=== PATIENT | female | born 1970 | race African-American/Black ===

== ENCOUNTER 2017-09-17 12:28 | Emergency (ER) | payer OTHER ==
[~2017-09-17] VITALS: Ht 172.7 cm; Wt 117.1 kg
[2017-09-17 12:33] VITALS: BP 156/104
--- NOTE | 2017-09-17 12:43 | NUR ---
PT AMBULATES TO BED 4, REPORT GIVEN TO MELISA BECERRA
--- NOTE | 2017-09-17 12:45 | NUR ---
PATIENT PRESENTS TO ED WITH COMPLAINTS OF RIGHT HIP PAIN. PATIENT STATES IT IS ONGOING AND SEVERE. DENIES N/V/D; SKIN IS PINK/WARM/DRY; AAOX4 WITH EVEN AND STEADY GAIT; LUNGS CLEAR BL; HR EVEN AND REGULAR; PT DENIES ANY FEVER, CP, SOB, OR COUGH AT THIS TIME; PATIENT STATES PAIN OF 10/10 AT THIS TIME; VSS; PATIENT POSITIONED FOR COMFORT; HOB ELEVATED; BEDRAILS UP X1; BED DOWN. ER MD MADE AWARE OF PT STATUS.
[2017-09-17] MEDS ORDERED: KETOROLAC 60 MG/2 ML VIAL IM ONE (12:55)
[2017-09-17] MEDS ORDERED: MORPHINE SULFATE 2 MG/ML SYR IM ONE (12:55)
--- NOTE | 2017-09-17 14:10 | NUR ---
PATIENT RESTING, REQUESTS WATER
[2017-09-17 14:55] VITALS: BP 122/88
--- NOTE | 2017-09-17 14:55 | NUR ---
Patient discharged with v/s stable. Written and verbal after care instructions given and explained. Patient alert, oriented and verbalized understanding of instructions. Ambulatory with steady gait. All questions addressed prior to discharge. ID band removed. Patient advised to follow up with PMD. Rx of TRAMADOL AND VISTARIL given. Patient educated on indication of medication including possible reaction and side effects. Opportunity to ask questions provided and answered.
== END 2017-09-17 14:55 | disposition home or self-care (01) ==
LOC: MED 12:28
DX: G89.29 Other chronic pain (principal); M54.5 Low back pain; I10 Essential (primary) hypertension; I25.10 Atherosclerotic heart disease of native coronary artery without angina pectoris; J44.9 Chronic obstructive pulmonary disease, unspecified; M19.90 Unspecified osteoarthritis, unspecified site; Z98.84 Bariatric surgery status
CPT/HCPCS: 72131; 96372; 99284; J1885; J2270

== ENCOUNTER 2018-01-24 21:17 | Emergency (ER) | payer OTHER ==
[~2018-01-24] VITALS: Ht 172.7 cm; Wt 122.5 kg
[2018-01-24 21:27] VITALS: BP 143/82
[2018-01-24] MEDS ORDERED: CYCL10TA33 PO (21:39)
[2018-01-24] MEDS ORDERED: SYN.05 PO (21:39)
[2018-01-24] MEDS ORDERED: ACET-62 PO (21:39)
[2018-01-24] MEDS ORDERED: OMEP20TC12 PO (21:39)
[2018-01-24] MEDS ORDERED: DICYCLOMINE HCL LIQUID 20 MG, ALUMINUM HYD/MAG/SIMETHICONE 30 ML, LIDOCAINE VISCOUS 2% ... PO ONE ×3 (21:45)
[2018-01-24 22:13] LABS: BASOPHILS # (AUTO) 0.1 K/uL (0.00-0.22); BASOPHILS % (AUTO) 0.9 % (0.0-2.0); EOSINOPHILS # (AUTO) 0.4 K/uL (0-0.4); EOSINOPHILS % (AUTO) 5.8 % (0.0-4.0); HEMATOCRIT 31.9 % (36-48); HEMOGLOBIN 10.4 g/dL (12.0-16.0); LYMPHOCYTES # (AUTO) 2.6 K/uL (2.5-16.5); LYMPHOCYTES % (AUTO) 37.7 % (20.5-51.1); MEAN CORPUSCULAR HEMOGLOBIN 30 pg (27-31); MEAN CORPUSCULAR HGB CONC 33 g/dL (33-37); MEAN CORPUSCULAR VOLUME 91.9 fL (80-94); MONOCYTES # (AUTO) 0.6 K/uL (0.8-1.0); MONOCYTES % (AUTO) 8.7 % (1.7-9.3); NEUTROPHILS # (AUTO) 3.2 K/uL (1.8-7.7); NEUTROPHILS % (AUTO) 46.9 % (42.2-75.2); PLATELET COUNT (AUTO) 280 K/uL (140-450); RED BLOOD CELL COUNT(AUTO) 3.47 MIL/uL (4.20-5.40); RED CELL DISTRIBUTION WIDTH 14.2 % (11.6-13.7); WHITE BLOOD COUNT (AUTO) 6.9 K/uL (4.8-10.8)
[2018-01-24 22:16] LABS: ANION GAP 8.2 (8-16); CARBON DIOXIDE 28.5 mmol/L (21-32); CREATININE 0.8 mg/dL (0.6-1.3); POTASSIUM 3.7 mmol/L (3.5-5.1)
[2018-01-24 22:22] LABS: ALBUMIN 3.4 g/dL (3.4-5.0); TOTAL BILIRUBIN 0.2 mg/dL (0.0-1.0)
[2018-01-24 22:51] LABS: APPEARANCE,URINE CLEAR (CLEAR); BILIRUBIN,URINE NEGATIVE (NEGATIVE); BLOOD, URINE TRACE (NEGATIVE); COLOR,URINE YELLOW (YELLOW); LEUKOCYTE ESTERASE ,URINE NEGATIVE (NEGATIVE); NITRITE, URINE NEGATIVE (NEGATIVE); PH,URINE 6.5 (5.0-9.0); UGLUCOSE NEGATIVE (NEGATIVE)
[2018-01-24 23:03] LABS: RBC,URINE 3-10 (FEW) /HPF (0-5)
[2018-01-24 23:10] VITALS: BP 139/79
== END 2018-01-24 23:11 | disposition home or self-care (01) ==
LOC: MED 21:17
DX: K21.9 Gastro-esophageal reflux disease without esophagitis (principal); D64.9 Anemia, unspecified; I10 Essential (primary) hypertension; J45.909 Unspecified asthma, uncomplicated; M06.9 Rheumatoid arthritis, unspecified; Z95.0 Presence of cardiac pacemaker; Z90.710 Acquired absence of both cervix and uterus; Z88.0 Allergy status to penicillin; Z91.040 Latex allergy status; Z79.1 Long term (current) use of non-steroidal anti-inflammatories (NSAID); Z79.899 Other long term (current) drug therapy
CPT/HCPCS: 36415; 80053; 81001; 81025; 83690; 85025; 87086; 99285

== ENCOUNTER 2018-02-09 15:01 | Emergency (ER) | payer OTHER ==
[~2018-02-09] VITALS: Ht 172.7 cm; Wt 118.4 kg
[2018-02-09 15:01] VITALS: BP 137/79
[~2018-02-09 15:01] MED LIST: ACET-62 PO; CYCL10TA33 PO; OMEP20TC12 PO; SYN.05 PO
[2018-02-09 17:18] VITALS: BP 137/79
== END 2018-02-09 17:18 | disposition home or self-care (01) ==
LOC: MED 15:01
DX: J30.9 Allergic rhinitis, unspecified (principal); J45.909 Unspecified asthma, uncomplicated; I10 Essential (primary) hypertension; Z88.0 Allergy status to penicillin; Z88.8 Allergy status to other drugs, medicaments and biological substances; Z91.040 Latex allergy status; Z79.899 Other long term (current) drug therapy; Z90.710 Acquired absence of both cervix and uterus
CPT/HCPCS: 36415; 71045; 87804; 99285; Q0092

== ENCOUNTER 2018-05-06 11:44 | Emergency (ER) | payer OTHER ==
[~2018-05-06] VITALS: Ht 167.6 cm; Wt 121.6 kg
[2018-05-06 12:03] VITALS: BP 120/91
--- NOTE | 2018-05-06 12:13 | NUR ---
AAO X 4 47 YO FEMALE AMBULATE TO BED 7 BIB SELF FOR DIARRHEA X 3 DAYS WITH BODY ACHE AND DIZZINESS. SHE HAS BEEN TAKING OTC ANTIDIARRHEAL AND COUGH MEDICINE WITH NO RELIEF. PLACE ON A GOWN, BED RAILS UP X2, ON MONITOR HX OF HIV.
[2018-05-06] MEDS ORDERED: PROMETHAZINE 25 MG/ML VIAL IM ONE (12:30)
[2018-05-06] MEDS ORDERED: DEXAMETHASONE 10 MG/ML VIAL IM ONE (12:30)
[2018-05-06] MEDS ORDERED: DIPHENOXYLATE /ATROPINE 2.5 MG TAB PO ONE (12:30)
--- NOTE | 2018-05-06 13:43 | NUR ---
Patient discharged with v/s stable. Written and verbal after care instructions given and explained. Patient alert, oriented and verbalized understanding of instructions. Ambulatory with steady gait. All questions addressed prior to discharge. ID band removed. Patient advised to follow up with PMD. Rx of Lomotil, Phenergan given. Patient educated on indication of medication including possible reaction and side effects. Opportunity to ask questions provided and answered.
[2018-05-06 13:44] VITALS: BP 117/66
== END 2018-05-06 13:43 | disposition home or self-care (01) ==
LOC: MED 11:44
DX: K52.9 Noninfective gastroenteritis and colitis, unspecified (principal); J45.909 Unspecified asthma, uncomplicated; I10 Essential (primary) hypertension; Z79.899 Other long term (current) drug therapy; Z88.0 Allergy status to penicillin; Z88.8 Allergy status to other drugs, medicaments and biological substances; Z91.040 Latex allergy status
CPT/HCPCS: 96372; 99283; J1100; J2550

== ENCOUNTER 2018-07-16 20:45 | Emergency (ER) | payer OTHER ==
[~2018-07-16] VITALS: Ht 170.2 cm; Wt 123.4 kg
[2018-07-16 20:52] VITALS: BP 150/90
--- NOTE | 2018-07-16 20:55 | NUR ---
TO LOBBY A/W BED, AMBULATORY
--- NOTE | 2018-07-16 21:07 | NUR ---
PT AMBULATED TO BED 08.
[2018-07-16] MEDS ORDERED: NACL 0.9% 1,000 ML IV ONE (21:25)
[2018-07-16 21:48] LABS: BASOPHILS % (AUTO) 0.6 % (0.0-2.0); EOSINOPHILS # (AUTO) 0.5 K/uL (0-0.4); EOSINOPHILS % (AUTO) 6.5 % (0.0-4.0); HEMATOCRIT 35.9 % (36-48); LYMPHOCYTES # (AUTO) 2.9 K/uL (2.5-16.5); MEAN CORPUSCULAR HEMOGLOBIN 30 pg (27-31); MEAN CORPUSCULAR HGB CONC 33 g/dL (33-37); MEAN CORPUSCULAR VOLUME 89.8 fL (80-94); MONOCYTES # (AUTO) 0.7 K/uL (0.8-1.0); MONOCYTES % (AUTO) 9.8 % (1.7-9.3); NEUTROPHILS # (AUTO) 2.9 K/uL (1.8-7.7); NEUTROPHILS % (AUTO) 42.1 % (42.2-75.2); PLATELET COUNT (AUTO) 273 K/uL (140-450); RED CELL DISTRIBUTION WIDTH 14.7 % (11.6-13.7)
[2018-07-16 21:50] LABS: APPEARANCE,URINE CLEAR (CLEAR); BILIRUBIN,URINE NEGATIVE (NEGATIVE); BLOOD, URINE NEGATIVE (NEGATIVE); COLOR,URINE YELLOW (YELLOW); NITRITE, URINE NEGATIVE (NEGATIVE); UGLUCOSE NEGATIVE (NEGATIVE)
[2018-07-16 21:52] LABS: LEUKOCYTE ESTERASE ,URINE NEGATIVE (NEGATIVE)
--- NOTE | 2018-07-16 21:52 | NUR ---
PT STATES SHE IS HIV POSITIVE.
[2018-07-16 21:56] LABS: BARBITURATE, URINE NEG. ng/ml (NEG <=200); BENZODIAZEPINE, URINE NEG. ng/mL (NEG <=200); CANNABINOID, URINE NEG. ng/mL (NEG <=50); COCAINE, URINE NEG. ng/mL (NEG <=300); OPIATE, URINE NEG. ng/mL (NEG <=2000); PHENCYCLIDINE SCREEN,URINE NEG. ng/mL (NEG <=25)
[2018-07-16 22:03] LABS: CARBON DIOXIDE 31.5 mmol/L (21-32); CREATININE 0.8 mg/dL (0.6-1.3); POTASSIUM 3.5 mmol/L (3.5-5.1)
[2018-07-16 22:09] LABS: ALBUMIN 3.7 g/dL (3.4-5.0); TOTAL BILIRUBIN 0.3 mg/dL (0.0-1.0)
[2018-07-16] MEDS ORDERED: MECLIZINE 25 MG TAB PO ONE (22:20)
[2018-07-16] MEDS ORDERED: KETOROLAC 30 MG/ML VIAL IVP ONE (22:20)
--- NOTE | 2018-07-16 22:30 | NUR ---
PT TO CT AT THIS TIME
[2018-07-16 23:39] VITALS: BP 140/88
== END 2018-07-16 23:39 | disposition home or self-care (01) ==
LOC: MED 20:45
DX: R42 Dizziness and giddiness (principal); R53.1 Weakness; R51 Headache; K21.9 Gastro-esophageal reflux disease without esophagitis; E07.9 Disorder of thyroid, unspecified; Z85.43 Personal history of malignant neoplasm of ovary; Z88.0 Allergy status to penicillin; Z88.8 Allergy status to other drugs, medicaments and biological substances; Z91.040 Latex allergy status; Z79.891 Long term (current) use of opiate analgesic; Z79.899 Other long term (current) drug therapy; J45.909 Unspecified asthma, uncomplicated; Z95.0 Presence of cardiac pacemaker; Z90.89 Acquired absence of other organs; Z90.710 Acquired absence of both cervix and uterus
CPT/HCPCS: 36415; 70450; 80053; 80305; 81003; 84443; 85025; 93005; 96361; 96374; 99284; J1885; J7030; J8597

== ENCOUNTER 2019-02-24 16:08 | Emergency (ER) | payer OTHER ==
[~2019-02-24] VITALS: Ht 170.2 cm; Wt 132.4 kg
[2019-02-24 16:17] VITALS: BP 163/92
--- NOTE | 2019-02-24 16:22 | NUR ---
VIVI WU. SENT TO LOB, AWAITING BED IN ED. VSS.
--- NOTE | 2019-02-24 18:10 | NUR ---
PATIENT AMBULATED TO BED 06
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
--- NOTE | 2019-02-24 19:56 | NUR ---
Dr. Graham examining patient.
[2019-02-24] MEDS ORDERED: KETOROLAC 60 MG/2 ML VIAL IM ONE (20:15)
--- NOTE | 2019-02-24 20:25 | NUR ---
48 Y/O FEMALE BILATERAL LEG PAIN X 1 WEEK ONSET AFTER NIECE LEANING ON LEGS WHILE PT WAS BRAIDING HAIR. SKIN IS NORMAL, DRY, AND ELASTIC. ERMD MADE AWARE OF STATUS. 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
--- NOTE | 2019-02-24 20:27 | NUR ---
PTS LEFT KNEE WAS J LUIS WRAPPED. PTS PMSC WNL AND PT DENIED THE CRUTCHES.
[2019-02-24 20:54] VITALS: BP 120/76
== END 2019-02-24 20:55 | disposition home or self-care (01) ==
LOC: MED 16:08
DX: S86.812A Strain of other muscle(s) and tendon(s) at lower leg level, left leg, initial encounter (principal); J45.909 Unspecified asthma, uncomplicated; K21.9 Gastro-esophageal reflux disease without esophagitis; E07.9 Disorder of thyroid, unspecified; Z85.43 Personal history of malignant neoplasm of ovary; Z90.710 Acquired absence of both cervix and uterus; Z95.0 Presence of cardiac pacemaker; Z79.899 Other long term (current) drug therapy; Z88.0 Allergy status to penicillin; Z88.8 Allergy status to other drugs, medicaments and biological substances; Z91.040 Latex allergy status; X58.XXXA Exposure to other specified factors, initial encounter; Y93.89 Activity, other specified; Y92.89 Other specified places as the place of occurrence of the external cause; Y99.8 Other external cause status
CPT/HCPCS: 73562; 73590; 96372; 99283; J1885

== ENCOUNTER 2019-04-18 22:47 | Emergency (ER) | payer OTHER ==
[~2019-04-18] VITALS: Ht 170.2 cm; Wt 135.6 kg
[2019-04-18 23:00] VITALS: BP 148/90
--- NOTE | 2019-04-18 23:03 | NUR ---
TO LOBBY A/W BED AMBULATORY
--- NOTE | 2019-04-19 01:52 | NUR ---
PATIENT SITTING UP IN BED, BED LOW AND LOCKED. HOOKED UP TO MONITOR, VSS. ASSESSMENT COMPLETED: BIB SELF REPORTING UMBILICAL ABD PAIN, EPIGASTRIC PAIN AND TENDERNESS AND RLQ PAIN. ABD SOFT, BOWEL SOUNDS ACTIVE. PATIENT REPORTS THAT SHE HAS HAD A HERNIA FOR "YEARS", NOT SEEN UPON ASSESSMENT. PATIENT REPORTS NO RESP SYMPTOMS, LUNGS CLEAR. PATIENT REPORTS NO FEVER, OR NVD. PMH IN CHART.
[2019-04-19 02:27] LABS: APPEARANCE,URINE SL CLOUDY (CLEAR); BILIRUBIN,URINE NEGATIVE (NEGATIVE); BLOOD, URINE NEGATIVE (NEGATIVE); COLOR,URINE YELLOW (YELLOW); LEUKOCYTE ESTERASE ,URINE 1+ (NEGATIVE); NITRITE, URINE NEGATIVE (NEGATIVE); UGLUCOSE NEGATIVE (NEGATIVE)
[2019-04-19] MEDS ORDERED: ONDANSETRON 4 MG/2 ML VIAL IVP ONE (02:40)
[2019-04-19] MEDS ORDERED: fentaNYL 0.05 MG/ML VIAL IVP ONE (02:40)
[2019-04-19 03:05] LABS: BASOPHILS % (AUTO) 0.5 % (0.0-2.0); EOSINOPHILS # (AUTO) 0.3 K/uL (0-0.4); EOSINOPHILS % (AUTO) 5.2 % (0.0-4.0); HEMATOCRIT 34.8 % (36-48); HEMOGLOBIN 11.3 g/dL (12.0-16.0); MEAN CORPUSCULAR HEMOGLOBIN 29 pg (27-31); MEAN CORPUSCULAR HGB CONC 33 g/dL (33-37); MEAN CORPUSCULAR VOLUME 89.8 fL (80-94); MONOCYTES # (AUTO) 0.6 K/uL (0.8-1.0); MONOCYTES % (AUTO) 9.6 % (1.7-9.3); NEUTROPHILS # (AUTO) 3.2 K/uL (1.8-7.7); NEUTROPHILS % (AUTO) 51.7 % (42.2-75.2); PLATELET COUNT (AUTO) 273 K/uL (140-450); RED BLOOD CELL COUNT(AUTO) 3.87 MIL/uL (4.20-5.40); RED CELL DISTRIBUTION WIDTH 14.8 % (11.6-13.7); WHITE BLOOD COUNT (AUTO) 6.2 K/uL (4.8-10.8)
[2019-04-19 03:16] LABS: RBC,URINE 0-5 /HPF (0-5); WBC,URINE TOO MANY TO COUNT /HPF (0-5)
[2019-04-19 03:21] LABS: ALBUMIN 3.6 g/dL (3.4-5.0); ANION GAP 11.2 (8-16); CARBON DIOXIDE 28.9 mmol/L (21-32); CREATININE 0.8 mg/dL (0.6-1.3); POTASSIUM 4.1 mmol/L (3.5-5.1); TOTAL BILIRUBIN 0.2 mg/dL (0.0-1.0)
--- NOTE | 2019-04-19 03:34 | NUR ---
PATIENT EDUCATED ON CONTRAST AND SIGNED CONSENT FOR CT WITH CONTRAST, STATED UNDERSTANDING.
[2019-04-19] MEDS ORDERED: ceFAZolin 1,000 MG VIAL ONE (04:10)
[2019-04-19 06:13] VITALS: BP 126/78
--- NOTE | 2019-04-19 06:13 | NUR ---
Patient discharged with v/s stable. Written and verbal after care instructions given and explained. Patient alert, oriented and verbalized understanding of instructions. Ambulatory with steady gait. All questions addressed prior to discharge. ID band removed. Patient advised to follow up with PMD. Rx of ZOFRAN, NORCO, AND BACTRIM given. Patient educated on indication of medication including possible reaction and side effects. Opportunity to ask questions provided and answered.
== END 2019-04-19 06:13 | disposition home or self-care (01) ==
LOC: MED 22:47
DX: N39.0 Urinary tract infection, site not specified (principal); J45.909 Unspecified asthma, uncomplicated; K21.9 Gastro-esophageal reflux disease without esophagitis; E07.9 Disorder of thyroid, unspecified; Z98.84 Bariatric surgery status; Z90.710 Acquired absence of both cervix and uterus; Z95.0 Presence of cardiac pacemaker; Z79.899 Other long term (current) drug therapy; Z88.0 Allergy status to penicillin; Z88.8 Allergy status to other drugs, medicaments and biological substances; Z91.040 Latex allergy status; Z85.43 Personal history of malignant neoplasm of ovary
CPT/HCPCS: 36415; 74177; 80053; 81001; 82150; 83690; 84703; 85025; 87086; 96365; 96375; 99284; J0690; J2405; J3010; J7060; Q9967

== ENCOUNTER 2019-08-29 14:48 | Inpatient (IN) | payer OTHER, SELFPAY ==
[~2019-08-29] VITALS: Ht 170.2 cm; Wt 97.5 kg
[2019-08-29] MEDS: HYDROCORTISONE 2.5% OINT 30 GM TUBE TP SCH (01:00)
--- NOTE | 2019-08-29 14:49 | NUR ---
PT BIBA BLSTO ER BED 07
[2019-08-29 14:54] VITALS: BP 147/92
[2019-08-29] MEDS ORDERED: HYDROcodone/APAP 5/325 MG 1 TAB TAB PO ONE (15:10)
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
--- NOTE | 2019-08-29 15:16 | NUR ---
Zulema higgins in [facility] - 08/29/19 at 1517 by ELIEZER X-RAY AT BEDSIDE
--- NOTE | 2019-08-29 15:17 | NUR ---
X-RAY AY BEDSIDE
--- NOTE | 2019-08-29 15:55 | NUR ---
PT AWAKE AND RESTING IN BED. R/R EVEN AND UNLABORED.
[2019-08-29] MEDS ORDERED: ONDANSETRON 4 MG/2 ML VIAL IVP ONE (16:05)
[2019-08-29] MEDS ORDERED: MORPHINE SULFATE 4 MG/ML SYR IVP ONE (16:05)
[2019-08-29 16:28] LABS: BASOPHILS # (AUTO) 0.1 K/uL (0.00-0.22); BASOPHILS % (AUTO) 0.8 % (0.0-2.0); EOSINOPHILS # (AUTO) 0.3 K/uL (0-0.4); EOSINOPHILS % (AUTO) 4.6 % (0.0-4.0); HEMATOCRIT 36.1 % (36-48); HEMOGLOBIN 11.7 g/dL (12.0-16.0); LYMPHOCYTES # (AUTO) 1.5 K/uL (2.5-16.5); LYMPHOCYTES % (AUTO) 22.5 % (20.5-51.1); MEAN CORPUSCULAR HEMOGLOBIN 28 pg (27-31); MEAN CORPUSCULAR HGB CONC 32 g/dL (33-37); MEAN CORPUSCULAR VOLUME 87.8 fL (80-94); MONOCYTES # (AUTO) 0.5 K/uL (0.8-1.0); MONOCYTES % (AUTO) 8.2 % (1.7-9.3); NEUTROPHILS # (AUTO) 4.2 K/uL (1.8-7.7); NEUTROPHILS % (AUTO) 63.9 % (42.2-75.2); PLATELET COUNT (AUTO) 324 K/uL (140-450); RED BLOOD CELL COUNT(AUTO) 4.11 MIL/uL (4.20-5.40); RED CELL DISTRIBUTION WIDTH 15.5 % (11.6-13.7); WHITE BLOOD COUNT (AUTO) 6.6 K/uL (4.8-10.8)
--- NOTE | 2019-08-29 16:34 | NUR ---
Patient taken to CT via gurney.
[2019-08-29 16:42] LABS: PROTHROMBIN TIME 10.6 secs (10.8-13.4)
[2019-08-29 16:43] LABS: ALBUMIN 3.7 g/dL (3.4-5.0); ANION GAP 13.3 (8-16); CARBON DIOXIDE 27.7 mmol/L (21-32); CREATININE 0.9 mg/dL (0.6-1.3); TOTAL BILIRUBIN 0.3 mg/dL (0.0-1.0)
--- NOTE | 2019-08-29 16:47 | NUR ---
PT RETURNED FROM CT ON [facility]
[2019-08-29] MEDS ORDERED: ZOLPIDEM 5 MG TAB PO PRN (17:40)
[2019-08-29] MEDS ORDERED: DOCUSATE SODIUM 100 MG GELCAP PO PRN (17:40)
[2019-08-29] MEDS ORDERED: DEXT 5% /NACL 0.9% 1,000 ML IV SCH (17:40)
[2019-08-29] MEDS ORDERED: ACETAMINOPHEN 325 MG TAB PO PRN (17:40)
[2019-08-29] MEDS ORDERED: [UNRECOGNIZED DRUG - CODE] OP (18:08)
[2019-08-29] MEDS ORDERED: BACL10TA4 PO (18:08)
[2019-08-29] MEDS ORDERED: CALC0.5S6 PO (18:08)
[2019-08-29] MEDS ORDERED: CHOL200074 PO (18:08)
[2019-08-29] MEDS ORDERED: FLUO0.052 TP (18:08)
[2019-08-29] MEDS ORDERED: DULO30EC PO (18:08)
[2019-08-29] MEDS ORDERED: ALBU0.0912 INH (18:08)
[2019-08-29] MEDS ORDERED: MULT-1328 PO (18:08)
[2019-08-29] MEDS ORDERED: OSC500 PO ×2 (18:08)
[2019-08-29] MEDS ORDERED: FLUT1DSK IH (18:08)
[2019-08-29] MEDS ORDERED: MAGN400T7 PO (18:08)
[2019-08-29] MEDS ORDERED: ESOM20EC PO (18:08)
[2019-08-29] MEDS ORDERED: LIDO5TDM45 TP (18:08)
[2019-08-29] MEDS ORDERED: LIRA6SOL SUBQ (18:08)
[2019-08-29] MEDS ORDERED: MONT10TA35 PO (18:08)
[2019-08-29] MEDS ORDERED: LEVO5TAB12 PO (18:08)
[2019-08-29] MEDS ORDERED: SYN.05 PO (18:08)
[2019-08-29] MEDS ORDERED: HYD2.5O TP (18:08)
[2019-08-29] MEDS ORDERED: [UNRECOGNIZED DRUG - CODE] PO (18:08)
[2019-08-29] MEDS ORDERED: KETO120S5 TP (18:08)
[2019-08-29] MEDS ORDERED: RIZA10TA PO (18:08)
[2019-08-29] MEDS ORDERED: ABAL1.56 SUBQ (18:08)
[2019-08-29] MEDS ORDERED: LEFL20TA18 PO (18:08)
[2019-08-29 18:20] LABS: CHOL/HDL RATIO 3.1 (1-4.5); FREE T4 (FREE THYROXINE) 0.8 ng/dL (0.76-1.46); MAGNESIUM 2.2 mg/dL (1.8-2.4); PHOSPHORUS 4.3 mg/dL (2.5-4.9)
--- NOTE | 2019-08-29 18:20 | NUR ---
Patient will be admitted to care of DR NOLAN. Admited to [facility]. Will go to room 124A. Belongings list completed. Report to MELISA BERGERON.
[2019-08-29 18:25] VITALS: BP 142/72
--- NOTE | 2019-08-29 18:25 | NUR ---
PATIENT ARRIVED VIA GURNEY FROM ED. REPORT GIVEN BY MELISA SINGH. PATIENT IS ALERT AND ORIENTED X4. INTRODUCED SELF. PT DX RT METARSAL FX AND LT TIBIAL PLATEAU. VS STABLE. MRSA SWAB DONE. DR. POMPA AT BEDSIDE. WILL ENDORSE TO NIGHT NURSE FOR CONTINUITY OF CARE. Addendum: 08/29/19 at 1830 by Macy Dent RN ADDITIONAL NOTES: PATIENT WITH IV TO LEFT AC 20G INTACT AND PATENT. CALL LIGHT WITHIN REACH.
[2019-08-29 18:42] LABS: THYROID STIMULATING HORMONE 2.2 uIU/mL (0.34-3.74)
[2019-08-29] MEDS ORDERED: RIZATRIPTAN BENZOATE 10 MG PO SCH (18:45)
--- NOTE | 2019-08-29 19:30 | NUR ---
RECEIVED BEDSIDE REPORT FROM AM SHIFT RN FOR PT'S CONTINUITY OF CARE. PT IS AAOX4, ON ROOM AIR, HAS LEFT AC 20G SALINE LOCK, STATES OF TOLERABLE RIGHT FOOT AND LEFT KNEE PAIN. EXPLAINED TO PT THE DRAFTING LAYOUT WORKER ROUTINE, PT VERBALIZED UNDERSTANDING. PT PROVIDED WITH BEDSIDE COMMODE. PT'S NEEDS MET AT THIS TIME. SAFETY MEASURES IN PLACE AND CALL LIGHT IS WITHIN REACH. WILL MONITOR PT THROUGHOUT SHIFT.
[2019-08-29] MEDS ORDERED: ONDANSETRON 4 MG/2 ML VIAL IM/IVP PRN (20:00)
[2019-08-29] MEDS: oxyCODONE/APAP 5/325 MG 1 TAB TAB PO PRN (20:33)
--- NOTE | 2019-08-29 20:50 | NUR ---
PT C/O RIGHT FOOT AND LEFT KNEE PAIN 09/03. ANIMAL CARETAKER SUPERVISOR ADMINISTERED PRN PO PAIN MEDICATION ORDERED. PT TOLERATED IT WELL. WILL CONTINUE TO MONITOR PT.
[2019-08-29] MEDS ORDERED: MORPHINE SULFATE 2 MG/ML SYR IVP PRN (22:10)
[2019-08-29] MEDS: BACLOFEN 10 MG TAB PO SCH (22:50)
[2019-08-29] MEDS: CALCIUM CARBONATE 500 MG TAB PO SCH (22:51)
[2019-08-29] MEDS: MULTIVITAMIN 1 TAB PO SCH (22:51)
[2019-08-29] MEDS: MONTELUKAST SODIUM 10 MG TAB PO SCH (22:51)
--- NOTE | 2019-08-29 22:58 | NUR ---
ADMINISTERED SCHEDULED MEDICATIONS ORDERED. PT TOLERATED THEM WELL. PT TEACHING GIVEN, PT VERBALIZED UNDERSTANDING. PT STATED ABD PAIN RELIEVED AFTER BOWEL MOVEMENT. PT'S NEEDS MET AT THIS TIME. CALL LIGHT IS WITHIN REACH. WILL CONTINUE TO MONITOR PT.
[2019-08-30] VITALS: BP 115/61
--- NOTE | 2019-08-30 | NUR ---
PT ASLEEP WITH NO SIGNS OF DISTRESS OR DISCOMFORT. WILL CONTINUE TO MONITOR PT.
--- NOTE | 2019-08-30 00:30 | NUR ---
CALLED PHARMACY TO REMIND AGAIN TO VERIFY HYDROCORTISONE TOPICAL OINTMENT. PHARMACY VERBALIZED WILL VERIFY SHORTLY.
--- NOTE | 2019-08-30 02:20 | NUR ---
MADE ROUNDS. PT IS ASLEEP WITH NO SIGNS OF DISTRESS OR DISCOMFORT. WILL CONTINUE TO MONITOR PT.
--- NOTE | 2019-08-30 04:33 | NUR ---
PT C/O RIGHT FOOT PAIN 12/04. ADMINISTERED PRN IVP PAIN MEDICATION ORDERED. PT TEACHING GIVEN, PT VERBALIZED UNDERSTANDING. WILL CONTINUE TO MONITOR PT.
[2019-08-30] MEDS: LEVOTHYROXINE 0.05 MG TAB PO SCH (05:41)
--- NOTE | 2019-08-30 05:41 | NUR ---
ADMINISTERED SCHEDULED MEDICATION ORDERED. PT TOLERATED IT WELL. PT TEACHING GIVEN, PT VERBALIZED UNDERSTANDING AND IS FAMILIAR WITH THE MEDICATION. PT'S TV NOT WORKING, WORK ORDER SUBMITTED BY NICKER AND BREAKER. PT MADE COMFORTABLE, C/O TOLERABLE PAIN OF 5/10. WILL CONTINUE TO MONITOR PT.
[2019-08-30 06:08] LABS: BASOPHILS # (AUTO) 0.1 K/uL (0.00-0.22); BASOPHILS % (AUTO) 0.8 % (0.0-2.0); EOSINOPHILS # (AUTO) 0.3 K/uL (0-0.4); EOSINOPHILS % (AUTO) 3.6 % (0.0-4.0); HEMATOCRIT 33.3 % (36-48); HEMOGLOBIN 10.8 g/dL (12.0-16.0); LYMPHOCYTES # (AUTO) 1.7 K/uL (2.5-16.5); LYMPHOCYTES % (AUTO) 22.8 % (20.5-51.1); MEAN CORPUSCULAR HEMOGLOBIN 29 pg (27-31); MEAN CORPUSCULAR HGB CONC 32 g/dL (33-37); MEAN CORPUSCULAR VOLUME 88.3 fL (80-94); MONOCYTES # (AUTO) 0.6 K/uL (0.8-1.0); NEUTROPHILS # (AUTO) 4.8 K/uL (1.8-7.7); NEUTROPHILS % (AUTO) 64.8 % (42.2-75.2); PLATELET COUNT (AUTO) 299 K/uL (140-450); RED BLOOD CELL COUNT(AUTO) 3.77 MIL/uL (4.20-5.40); RED CELL DISTRIBUTION WIDTH 15.9 % (11.6-13.7); WHITE BLOOD COUNT (AUTO) 7.4 K/uL (4.8-10.8)
[2019-08-30 06:17] LABS: T4 (THYROXINE) 6.6 ug/dL (4.5-12.0)
[2019-08-30] MEDS: oxyCODONE/APAP 5/325 MG 1 TAB TAB PO PRN ×2 (06:51→12:14)
--- NOTE | 2019-08-30 06:51 | NUR ---
PT C/O RIGHT FOOT AND LEFT KNEE PAIN, AGGRAVATED WHEN PUTTING WEIGHT ON TO BSC. ADMINISTERED PRN PO PAIN MEDICATION ORDERED. PT TOLERATED IT WELL. PT TEACHING GIVEN AND ENCOURAGE TO USE NON-PHARMACOLOGIC TECHNIQUES FOR PAIN RELIEF. PT VERBALIZED UNDERSTANDING. WILL ENDORSE PT TO AM SHIFT RN FOR PT'S CONTINUITY OF CARE.
[2019-08-30 07:04] LABS: ANION GAP 10.6 (8-16); CARBON DIOXIDE 29.7 mmol/L (21-32); CREATININE 0.9 mg/dL (0.6-1.3); POTASSIUM 4.3 mmol/L (3.5-5.1)
[2019-08-30 07:07] LABS: PHOSPHORUS 4.6 mg/dL (2.5-4.9)
--- NOTE | 2019-08-30 07:31 | NUR ---
SHIFT REPORT RECEIVED FROM CERTIFIED PHLEBOTOMIST NURSE. PT IS SLEEPING IN BED AT THIS TIME. SAFETY MEASURES IN PLACE. WILL CONTINUE TO MONITOR. CALL LIGHT IN REACH.
[2019-08-30 07:37] LABS: MAGNESIUM 2.2 mg/dL (1.8-2.4)
[2019-08-30 08:00] VITALS: BP 127/71
--- NOTE | 2019-08-30 08:00 | NUR ---
PT IS IN BED AT THIS TIME. NO COMPLAINS OF PAIN REPORTED AT THIS TIME. VITAL SIGNS ARE WITHIN NORMAL LEVELS. MORNING MEDICATIONS GIVEN TO PATIENT. PT IS A0X4. IV LINE INTACT AND PATIENT. SAFETY MEASURES IN PLACE. CALL LIGHT IN REACH. WILL CONTINUE TO MONITOR.
[2019-08-30] MEDS: BACLOFEN 10 MG TAB PO SCH ×2 (08:37→21:40)
[2019-08-30] MEDS: CALCIUM CARBONATE 500 MG TAB PO SCH ×2 (08:37→21:41)
[2019-08-30] MEDS: CHOLECALCIFEROL 1,000 IU TAB PO SCH (08:37)
[2019-08-30] MEDS: MULTIVITAMIN 1 TAB PO SCH ×2 (08:37→21:41)
[2019-08-30 08:43] LABS: PROTHROMBIN TIME 10.5 secs (10.8-13.4)
--- NOTE | 2019-08-30 08:57 | NUR ---
PATIENT HAS BEEN SCREENED AND CATEGORIZED LOW NUTRITION RISK. PATIENT WILL BE SEEN WITHIN 7 DAYS OF ADMISSION. 09/05/[address]
[2019-08-30] MEDS ORDERED: VITAMIN A ACETATE PO SCH (09:00)
[2019-08-30] MEDS: PANTOPRAZOLE 40 MG TABEC PO SCH (09:40)
[2019-08-30] MEDS: HYDROCORTISONE 2.5% OINT 30 GM TUBE TP SCH ×2 (09:41→21:41)
--- NOTE | 2019-08-30 09:48 | NUR ---
ELECTRONICS ENGINEERING TECHNOLOGIST NOTE: Basic Screen: Yes High Risk DC Screen [place]: VALENTIN SEE [place] Relationship: Pre-Admission Living Arrangements: Lives with Other Prior ADL Independent Current Home Health Name/Tel: N/A Current DME/02 Name/Tel: N/A Current Hospice Name/Tel: N/A Current Dialysis Name/Tel: N/A Healthcare Decision Maker: Patient Advance Directive No Physician Orders for Life Sustaining Treatment Form No Patient/Family Have Educational Needs No Discipline: Case Mgt/Social Svcs Tentative Discharge Plan/Destination: No Needs Identified Will require assistance post discharge: No Referred to Furniture Assembler: No Tentative Discharge Plan Summary: PATIENT IS A 76-YEAR-OLD FEMALE ADMITTED FOR [place]. PATIENT HAS PMHX OF HYPOTHYROIDISM, HTN, AND HLD. PATIENT WAS ADMITTED FROM HOME WHERE SHE LIVES WITH FAMILY. SW CONTACTED [facility] [phone] TO VERIFY DEMOGRAPHICS. PER SHANTE, PATIENT IS INDEPENDENT WITH ALL ADLS AND IS ALERT/ORIENTED AT BASELINE. SHANTE STATED REQUIRES NO ASSISTANCE WITH ADLS AND THAT ALL NEEDS ARE BEING MET. SHANTE REPORTED NO HISTORY OF SUBSTANCE ABUSE OR MENTAL HEALTH. TENTATIVE DISCHARGE PLAN IS FOR PATIENT TO RETURN HOME. NO FURTHER NEEDS IDENTIFIED. Signature: GIORGI MA Date: Aug 30, 2019 Time: 09:27
--- NOTE | 2019-08-30 10:58 | NUR ---
DISCHARGE PLANNING: RECEIVED AN ORDER FOR RANGE OF MOTION BRACE FOR LEFT KNEE AND HARD SOLE SHOE FOR RIGHT FOOT. CONTACTED LILIA OF [facility], HE STATED THAT MEDICARE SHOULD COVER IT. CONTACTED MARCIA OF [facility] AT [phone], HE CONFIRMED THAT THEY CARRY IT AND TO GO AHEAD AND FAX OVER ORDER TO [phone]. ORDER AND ORTHO NOTES FAXED TO THE PROVIDED NUMBER. WILL FOLLOW UP. Addendum: 08/30/19 at 1334 by Acacia Thomas CM CONTACTED MARCIA BACK TO FOLLOW UP WITH THE REQUEST. HE STATED ALL HE NEEDED RIGHT NOW IS THE SHOE SIZE OF THE PATIENT. PRIMARY RN MADE AWARE AND WILL CALL ME BACK. Addendum: 08/30/19 at 1451 by Acacia Thomas CM PER RN PATIENT'S SHOE SIZE IS 11. CLEO CRAWFORD Sitemasher OF THE PATIENT'S SHOE SIZE. HE STATED THAT THEY CAN DELIVER THE KNEE BRACE AND THE BEDSIDE COMMODE TODAY HOWEVER THEY HAVE TO ORDER THE HARD SOLE SHOE SINCE THEY DO NOT HAVE THE PATIENT'S SHOE SIZE AT THIS TIME. BUT IT CAN BE DELIVERED TO THE PATIENT'S HOME ADDRESS ON MONDAY OR MONDAY. I REQUESTED THAT THE KNEE BRACE CAN BE DELIVERED HERE TODAY AND THE BEDSIDE COMMODE AND SHOE AT THE HOME ADDRESS AND IS IN AGREEMENT. DR. MARCELINO AND CHARGE NURSE MADE AWARE. Addendum: 08/31/19 at 1141 by Shea Vicente CM DC PLANNING: PT HAS A DC ORDER HOME WITH HOME HEALTH . FAXED TO [facility]. COVID TEST IS PENDING ,KNEE BRACE WITH THE PATIENT AWAITING FOR THE PT TO INSTRUCT PATIENT HOW TO PLACE THE KNEE BRACE. CM TO FOLLOW .
--- NOTE | 2019-08-30 11:00 | NUR ---
PT IS SITTING IN BED AT THIS [place] WATCHING TELEVISION AND TALKING TO FAMILY MEMBERS OVER PHONE. NO COMPLAINS OF PAIN OR DISTRESS NOTED. WILL CONTINUE TO MONITOR. CALL LIGHT IN REACH.
--- NOTE | 2019-08-30 13:00 | NUR ---
PT WAS SEEN USING THE BEDSIDE COMMODE. PT SAY HER LEG HURTS WHEN SHE WALKS. PT IS OTHERWISE STABLE. CALL LIGHT IN REACH
[2019-08-30 16:00] VITALS: BP 140/86
--- NOTE | 2019-08-30 16:00 | NUR ---
PT IS RESTING IN BED. NO COMPLAINS OF PAIN. WILL CONTINUE TO MONITOR . CALL LIGHT IN REACH.
--- NOTE | 2019-08-30 19:30 | NUR ---
SHIFT REPORT GIVEN TO NIGHT SHIT NURSE. PT IS RESTING IN BED. NO COMPLAINS OF PAIN. WILL CONTINUE TO MONITOR . CALL LIGHT IN REACH.
--- NOTE | 2019-08-30 19:31 | NUR ---
RECEIVED BEDSIDE SHIFT REPORT FROM DAYSHIFT NURSE FOR CONTINUITY OF CARE. PATIENT AWAKE AND ALERT NO SIGNS OF DISTRESS NOTED. PATIENT DENIES PAIN AT THIS TIME. IV SITE ASSESSED AND PATENT.
[2019-08-30 20:33] LABS: APPEARANCE,URINE CLEAR (CLEAR); BILIRUBIN,URINE NEGATIVE (NEGATIVE); BLOOD, URINE NEGATIVE (NEGATIVE); COLOR,URINE YELLOW (YELLOW); LEUKOCYTE ESTERASE ,URINE NEGATIVE (NEGATIVE); NITRITE, URINE NEGATIVE (NEGATIVE); UGLUCOSE NEGATIVE (NEGATIVE)
[2019-08-30 20:42] LABS: BARBITURATE, URINE NEGATIVE ng/ml (NEG <=200); BENZODIAZEPINE, URINE NEGATIVE ng/mL (NEG <=200); CANNABINOID, URINE NEGATIVE ng/mL (NEG <=50); COCAINE, URINE NEGATIVE ng/mL (NEG <=300); OPIATE, URINE POSITIVE ng/mL (NEG <=2000); PHENCYCLIDINE SCREEN,URINE NEGATIVE ng/mL (NEG <=25)
--- NOTE | 2019-08-30 21:40 | NUR ---
ADMINISTERED 2100 MEDICATIONS TO PATIENT. PATIENT TOLERATED WELL. NO SIGNS OF DISTRESS NOTED. RESPIRATIONS EVEN AND UNLABORED ON RA. PATIENT PROVIDED A BLANKET PER PATIENTS REQUEST. I ALSO ATTEMPTED TO PLACE THE WEIGHT BEARING BRACE FOR THE PATIENT BUT DID NOT SEE SPECIFIC INSTRUCTIONS IN THE NOTES ON THE DEGREE TO SET THE BRACE. SPOKE WITH RESIDENT PHYSICIANS THEY STATE THAT THEY WILL LOOK INTO THE MATTER AND MAY HAVE TO DEFER TO AM AND HAVE A PT CONSULT PLACED FOR PROPER FITTING.
[2019-08-30] MEDS: MONTELUKAST SODIUM 10 MG TAB PO SCH (21:41)
--- NOTE | 2019-08-30 22:40 | NUR ---
PATIENT INFORMED ME THAT SHE DID NOT EAT HER DINNER BECAUSE IT CONTAINED ONIONS. PATIENT STATES SHE DOES NOT HAVE AN ALLERGY TO ONIONS BUT IT IS A TRIGGER FOR HER ASTHMA. SINCE PATIENT IS ON A REGULAR DIET I PROVIDED HER WITH A SANDWICH, JEEVAN CRACKERS AND JUICE. I INFORMED RESIDENT OF PATIENTS STATEMENTS AND HE STATES HE WILL AMEND DIETARY ORDER LISTING ONIONS AN ALLERGY. PATIENT INFORMED OF THE CHANGE IN DIETARY ORDER THAT IS BEING PLACED FOR HER
[2019-08-31] VITALS: BP 126/75
--- NOTE | 2019-08-31 00:30 | NUR ---
PATIENT REQUESTED SOME CRANBERRY JUICE AND TO HAVE THE TEMPERATURE IN HER ROOM ADJUSTED. PATIENT AWAKE NO SIGNS OF DISTRESS NOTED RESPIRATIONS EVEN AND UNLABORED ON RA. CALL LIGHT WITHIN REACH WILL CONTINUE TO MONITOR
[2019-08-31] MEDS: oxyCODONE/APAP 5/325 MG 1 TAB TAB PO PRN (00:37)
--- NOTE | 2019-08-31 00:37 | NUR ---
PATIENT REQUIRED ASSISTANCE AMBULATING TO TO THE BEDSIDE COMMODE AND STATES SHE IS IN PAIN NOW. MEDICATED PATIENT FOR PAIN PER MD ORDER. PATIENT TOLERATED WELL WILL CONTINUE TO MONITOR
--- NOTE | 2019-08-31 02:52 | NUR ---
ROUNDING PATIENT RESTING NO SIGNS OF DISTRESS NOTED. CALL LIGHT WITHIN REACH WILL CONTINUE TO MONITOR
[2019-08-31] MEDS: LEVOTHYROXINE 0.05 MG TAB PO SCH (06:25)
--- NOTE | 2019-08-31 06:27 | NUR ---
ADMINISTERED 0630 MEDICATION TO PATIENT. PATIENT TOLERATED WELL NO SIGNS OF DISTRESS NOTED. WILL CONTINUE TO MONITOR
[2019-08-31 07:03] LABS: BASOPHILS # (AUTO) 0.1 K/uL (0.00-0.22); BASOPHILS % (AUTO) 1.2 % (0.0-2.0); EOSINOPHILS # (AUTO) 0.3 K/uL (0-0.4); HEMATOCRIT 33.8 % (36-48); HEMOGLOBIN 10.8 g/dL (12.0-16.0); LYMPHOCYTES # (AUTO) 2.1 K/uL (2.5-16.5); LYMPHOCYTES % (AUTO) 32.1 % (20.5-51.1); MEAN CORPUSCULAR HEMOGLOBIN 28 pg (27-31); MEAN CORPUSCULAR HGB CONC 32 g/dL (33-37); MEAN CORPUSCULAR VOLUME 87.6 fL (80-94); MONOCYTES # (AUTO) 0.6 K/uL (0.8-1.0); NEUTROPHILS # (AUTO) 3.5 K/uL (1.8-7.7); NEUTROPHILS % (AUTO) 52.7 % (42.2-75.2); PLATELET COUNT (AUTO) 277 K/uL (140-450); RED BLOOD CELL COUNT(AUTO) 3.86 MIL/uL (4.20-5.40); RED CELL DISTRIBUTION WIDTH 15.6 % (11.6-13.7); WHITE BLOOD COUNT (AUTO) 6.6 K/uL (4.8-10.8)
[2019-08-31 07:16] LABS: ANION GAP 10.3 (8-16); CARBON DIOXIDE 30.8 mmol/L (21-32); CREATININE 0.9 mg/dL (0.6-1.3); MAGNESIUM 2.1 mg/dL (1.8-2.4); PHOSPHORUS 3.9 mg/dL (2.5-4.9); POTASSIUM 4.1 mmol/L (3.5-5.1)
--- NOTE | 2019-08-31 07:19 | NUR ---
ENDORSED PATIENT TO DAYSHIFT NURSE FOR CONTINUITY OF CARE. PATIENT IN STABLE CONDITION
--- NOTE | 2019-08-31 07:20 | NUR ---
RECEIVED REPORT FROM NIGHT NURSE FOR CONTINUITY OF CARE, PT IS STABLE, PT IS AA0X4, PT HAS LEFT AC 20G INFUSING NORMAL SALINE AT 10 ML/H, SKIN INTACT, PT FALL RISK, INSTRUCTED PT TO CALL NURSE TO HELP WHEN GETTING UP, BED IN LOW POSITION, SAFETY MEASURES IN PLACE, CALL LIGHT WITHIN REACH, ALL NEEDS MET AT THIS TIME.
[2019-08-31 08:00] VITALS: BP 135/87
[2019-08-31] MEDS: BACLOFEN 10 MG TAB PO SCH (08:49)
[2019-08-31] MEDS: CALCIUM CARBONATE 500 MG TAB PO SCH (08:50)
[2019-08-31] MEDS: PANTOPRAZOLE 40 MG TABEC PO SCH (08:51)
[2019-08-31] MEDS: MULTIVITAMIN 1 TAB PO SCH (08:51)
[2019-08-31] MEDS: CHOLECALCIFEROL 1,000 IU TAB PO SCH (08:52)
[2019-08-31] MEDS ORDERED: FLUOCINONIDE 0.05% OINT 30 GM TUBE TP SCH (09:00)
[2019-08-31] MEDS: HYDROCORTISONE 2.5% OINT 30 GM TUBE TP SCH (09:00)
--- NOTE | 2019-08-31 09:00 | NUR ---
ADMINISTERED SCHEDULED MEDICATION, MEDICATION EDUCATION GIVEN, PT VERBALIZED UNDERSTANDING, PT TOLERATED WELL, PT IS STABLE, NO SIGNS OF DISTRESS NOTED, RESPIRATIONS ARE EVEN AND UNLABORED ON ROOM AIR, ALL NEEDS MET, CALL LIGHT WITHIN REACH.
--- NOTE | 2019-08-31 10:30 | NUR ---
SPOKE WITH EVA (PT), STATED SHE WILL SWING BY THIS AFTERNOON TO SEE PT.
--- NOTE | 2019-08-31 11:15 | NUR ---
PT IS SITTING IN BED WATCHING TV, PT IS STABLE, NO SIGNS OF DISTRESS NOTED, RESPIRATIONS ARE EVEN AND UNLABORED ON ROOM, CALL LIGHT WITHIN REACH.
[2019-08-31] MEDS ORDERED: ACET-5629 PO (11:16)
--- NOTE | 2019-08-31 11:30 | NUR ---
SPOKE WITH EVA (PT), INFORMED HER THAT PT CAN NOT WAIT FOR HER TO COME IN THIS AFTERNOON. PHOTOS OF THE LEG/KNEE BRACE SENT TO EVA. PER EVA, SHE WILL FOLLOW UP PT AT HER RESIDENCE THIS AFTERNOON. PT'S HOME ADDRESS AND TELEPHONE NUMBER GIVEN TO EVA. PT VERBALIZED UNDERSTANDING.
--- NOTE | 2019-08-31 12:06 | NUR ---
HOME ISOLATION INSTRUCTIONS FOR NOVEL CORONAVIRUS 2019 GIVEN, PT VERBALIZED UNDERSTANDING.
--- NOTE | 2019-08-31 12:07 | NUR ---
PT DISCHARGED HOME, DISCHARGED INSTRUCTIONS GIVEN, PT VERBALIZED UNDERSTANDING, PT IV REMOVED AND INTACT, PT WHEELED TO CAR, PT STABLE,
== END 2019-08-31 12:10 | disposition home health service (06) | DRG 563 ==
LOC: MED 14:48 → MTU 17:40
PROVIDERS: ADMIT General Practice; ATTEND General Practice
PROC: 2W3SX1Z Immobilization of Right Foot using Splint (ICD-10-PCS; principal; 2019-08-29)
DX: S82.142A Displaced bicondylar fracture of left tibia, initial encounter for closed fracture (principal); S92.321A Displaced fracture of second metatarsal bone, right foot, initial encounter for closed fracture; S92.331A Displaced fracture of third metatarsal bone, right foot, initial encounter for closed fracture; S92.341A Displaced fracture of fourth metatarsal bone, right foot, initial encounter for closed fracture; J45.909 Unspecified asthma, uncomplicated; E11.9 Type 2 diabetes mellitus without complications; K21.9 Gastro-esophageal reflux disease without esophagitis; I10 Essential (primary) hypertension; E03.9 Hypothyroidism, unspecified; G47.30 Sleep apnea, unspecified; E55.9 Vitamin D deficiency, unspecified; E78.5 Hyperlipidemia, unspecified; G43.909 Migraine, unspecified, not intractable, without status migrainosus; M62.838 Other muscle spasm; D63.8 Anemia in other chronic diseases classified elsewhere; Z20.828 Contact with and (suspected) exposure to other viral communicable diseases; Z88.0 Allergy status to penicillin; Z88.8 Allergy status to other drugs, medicaments and biological substances; Z91.040 Latex allergy status; Z95.0 Presence of cardiac pacemaker; W01.0XXA Fall on same level from slipping, tripping and stumbling without subsequent striking against object, initial encounter; Y93.89 Activity, other specified; Y92.89 Other specified places as the place of occurrence of the external cause; Y99.8 Other external cause status
CPT/HCPCS: 36415; 71045; 73562; 73630; 73700; 80048; 80053; 80305; 81003; 82150; 83036; 83690; 83735; 83880; 84100; 84436; 84439; 84443; 84479; 84484; 85025; 85610; 87081; 96374; 96375; 97116; 97161-GP; 99285; J1644; J2270; J2405; J7042; Q0092; U0003-CS

== ENCOUNTER 2019-12-06 07:00 | Emergency (ER) | payer OTHER, SELFPAY ==
[~2019-12-06] VITALS: Ht 167.6 cm; Wt 141.5 kg
[~2019-12-06 07:00] MED LIST changes: +ABAL1.56 SUBQ; +ACET-5629 PO; -ACET-62 PO; +ALBU0.0912 INH; +BACL10TA4 PO; +CALC0.5S6 PO; +CHOL200074 PO; -CYCL10TA33 PO; +DULO30EC PO; +ESOM20EC PO; +FLUO0.052 TP; +FLUT1DSK IH; +HYD2.5O TP; +KETO120S5 TP; +LEFL20TA18 PO; +LEVO5TAB12 PO; +LIDO5TDM45 TP; +LIRA6SOL SUBQ; +MAGN400T7 PO; +MONT10TA35 PO; +MULT-1328 PO; -OMEP20TC12 PO; +OSC500 PO; +RIZA10TA PO; +[UNRECOGNIZED DRUG - CODE] OP; +[UNRECOGNIZED DRUG - CODE] PO
[2019-12-06 07:08] VITALS: BP 154/95
--- NOTE | 2019-12-06 07:28 | NUR ---
49 YEAR OLD FEMALE COMPLAINS OF LEFT CALF PAIN SINCE August WHEN SHE WAS AT A HOSPITAL. PT STATES SHE HAS BURNING AND TIGHTNESS SENSATION IN LEFT CALF AREA. SITE WITH SWELLING, LIMITED ROM, SKIN TAUT. CAP REFILL < 3 SEC, PED PULSE +2. PT AOX4, BREATHING EVEN AND UNLABORED, SKIN WARM AND DRY. BED IN LOWEST POSITION, LOCKED, BED RAIL UPX1. PMH - HTN, HIV, ASTHMA, CHF, PACEMAKER
--- NOTE | 2019-12-06 07:40 | NUR ---
ULTRASOUND AT BEDSIDE
[2019-12-06 07:58] LABS: BASOPHILS % (AUTO) 0.9 % (0.0-2.0); EOSINOPHILS # (AUTO) 0.3 K/uL (0-0.4); HEMATOCRIT 34.4 % (36-48); HEMOGLOBIN 11.1 g/dL (12.0-16.0); LYMPHOCYTES % (AUTO) 35.1 % (20.5-51.1); MEAN CORPUSCULAR HEMOGLOBIN 28 pg (27-31); MEAN CORPUSCULAR HGB CONC 32 g/dL (33-37); MEAN CORPUSCULAR VOLUME 87.7 fL (80-94); MONOCYTES # (AUTO) 0.6 K/uL (0.8-1.0); MONOCYTES % (AUTO) 11.1 % (1.7-9.3); NEUTROPHILS # (AUTO) 2.7 K/uL (1.8-7.7); NEUTROPHILS % (AUTO) 47.9 % (42.2-75.2); PLATELET COUNT (AUTO) 281 K/uL (140-450); RED BLOOD CELL COUNT(AUTO) 3.92 MIL/uL (4.20-5.40); RED CELL DISTRIBUTION WIDTH 15.3 % (11.6-13.7); WHITE BLOOD COUNT (AUTO) 5.6 K/uL (4.8-10.8)
[2019-12-06 08:13] LABS: CARBON DIOXIDE 27.6 mmol/L (21-32); CREATININE 0.9 mg/dL (0.6-1.3); POTASSIUM 3.6 mmol/L (3.5-5.1)
[2019-12-06 08:19] LABS: ALBUMIN 3.5 g/dL (3.4-5.0); TOTAL BILIRUBIN 0.2 mg/dL (0.0-1.0)
--- NOTE | 2019-12-06 09:30 | NUR ---
PT ALERT AND AWAKE, BREATHING EVEN AND UNLABORED. NO DISTRESS NOTED.
[2019-12-06 09:38] LABS: PROTHROMBIN TIME 10.2 secs (10.8-13.4)
--- NOTE | 2019-12-06 10:35 | NUR ---
Patient discharged with v/s stable. Written and verbal after care instructions about sprain given and explained. Patient alert, oriented and verbalized understanding of instructions. Ambulatory with steady gait. All questions addressed prior to discharge. ID band removed. Patient advised to follow up with PMD. Rx of gabapentin and motrin given. Patient educated on indication of medication including possible reaction and side effects. Opportunity to ask questions provided and answered.
[2019-12-06 10:39] VITALS: BP 130/81
== END 2019-12-06 10:35 | disposition home or self-care (01) ==
LOC: MED 07:00
DX: M79.661 Pain in right lower leg (principal); R22.41 Localized swelling, mass and lump, right lower limb; R03.0 Elevated blood-pressure reading, without diagnosis of hypertension; E07.9 Disorder of thyroid, unspecified; J45.909 Unspecified asthma, uncomplicated; K21.9 Gastro-esophageal reflux disease without esophagitis; I51.89 Other ill-defined heart diseases; Z88.8 Allergy status to other drugs, medicaments and biological substances; Z91.040 Latex allergy status; Z88.0 Allergy status to penicillin; Z79.899 Other long term (current) drug therapy; Z98.890 Other specified postprocedural states
CPT/HCPCS: 36415; 80053; 85025; 85610; 85730; 93971; 99284; Q0092

== ENCOUNTER 2020-04-05 10:01 | Inpatient (IN) | payer OTHER, SELFPAY ==
[~2020-04-05] VITALS: Ht 170.2 cm; Wt 145.1 kg
--- NOTE | 2020-04-05 12:20 | NUR ---
PT TAKEN TO [facility] VIA MATT.
[2020-04-05 12:22] VITALS: BP 159/94
[2020-04-05] MEDS ORDERED: HYDROcodone/APAP 10/325 MG 1 TAB TAB PO STA (12:26)
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
--- NOTE | 2020-04-05 12:46 | NUR ---
DR. QUINONES AT BEDSIDE.
[2020-04-05] MEDS ORDERED: MORPHINE SULFATE 4 MG/ML SYR IVP ONE ×2 (13:10→16:55)
[2020-04-05] MEDS ORDERED: MORPHINE SULFATE 4 MG/ML SYR ONE ×2 (13:12→18:00)
[2020-04-05] MEDS ORDERED: HYDROcodone/APAP 5/325 MG 1 TAB TAB PO SCH (13:15)
--- NOTE | 2020-04-05 13:25 | NUR ---
PT TAKEN TO XRAY VIA MATT.
--- NOTE | 2020-04-05 13:50 | NUR ---
PT BACK FROM [facility] VIA MATT.
[2020-04-05 14:47] LABS: BASOPHILS % (AUTO) 0.4 % (0.0-2.0); EOSINOPHILS % (AUTO) 0.3 % (0.0-4.0); HEMATOCRIT 32.9 % (36-48); HEMOGLOBIN 10.5 g/dL (12.0-16.0); LYMPHOCYTES % (AUTO) 11.5 % (20.5-51.1); MEAN CORPUSCULAR HEMOGLOBIN 28 pg (27-31); MEAN CORPUSCULAR HGB CONC 32 g/dL (33-37); MEAN CORPUSCULAR VOLUME 86.1 fL (80-94); MONOCYTES # (AUTO) 0.5 K/uL (0.8-1.0); MONOCYTES % (AUTO) 6.3 % (1.7-9.3); NEUTROPHILS % (AUTO) 81.5 % (42.2-75.2); PLATELET COUNT (AUTO) 296 K/uL (140-450); RED BLOOD CELL COUNT(AUTO) 3.82 MIL/uL (4.20-5.40); RED CELL DISTRIBUTION WIDTH 15.8 % (11.6-13.7); WHITE BLOOD COUNT (AUTO) 8.6 K/uL (4.8-10.8)
--- NOTE | 2020-04-05 15:07 | NUR ---
PT TAKEN TO CT VIA MATT
[2020-04-05 15:09] LABS: ANION GAP 11.7 (8-16); CARBON DIOXIDE 28.9 mmol/L (21-32); CREATININE 0.9 mg/dL (0.6-1.3); POTASSIUM 3.6 mmol/L (3.5-5.1)
[2020-04-05 15:49] LABS: PROTHROMBIN TIME 10.4 secs (10.8-13.4)
[2020-04-05] MEDS ORDERED: NACL 0.9% 1,000 ML IV ONE (16:55)
[2020-04-05] MEDS ORDERED: ACETAMINOPHEN 325 MG TAB PO PRN (20:10)
[2020-04-05] MEDS ORDERED: DOCUSATE SODIUM 100 MG GELCAP PO PRN (20:10)
[2020-04-05] MEDS ORDERED: MORPHINE SULFATE 2 MG/ML SYR IVP PRN (20:10)
[2020-04-05] MEDS ORDERED: MAG SULF 2000 MG/WATER PREMIX 50 ML IV PRN (20:10)
[2020-04-05] MEDS ORDERED: ONDANSETRON 4 MG/2 ML VIAL IM/IVP PRN (20:10)
[2020-04-05] MEDS ORDERED: POTASSIUM CHLORIDE 40 MEQ, LIDOCAINE MPF 1% 25 MG in NACL 0.9% 250 ML IV PRN (20:10)
[2020-04-05] MEDS ORDERED: SODIUM PHOS / POTASSIUM PHOS 1 PKT PDR PO PRN (20:10)
--- NOTE | 2020-04-05 20:14 | NUR ---
Per Dr. Arias pt is okay to eat dinner, NPO after midnight.
[2020-04-05 21:02] LABS: MAGNESIUM 2.1 mg/dL (1.8-2.4); PHOSPHORUS 3.9 mg/dL (2.5-4.9)
[2020-04-05] MEDS: FAMOTIDINE 20 MG/2 ML VIAL IV SCH (21:15)
--- NOTE | 2020-04-05 21:32 | NUR ---
PT TAKEN TO ULTRASOUND
--- NOTE | 2020-04-05 21:57 | NUR ---
PT RETURN FROM US
[2020-04-05] MEDS: HYDROcodone/APAP 5/325 MG 1 TAB TAB PO PRN (22:27)
[2020-04-05] MEDS: MORPHINE SULFATE 2 MG/ML SYR IVP PRN (22:28)
--- NOTE | 2020-04-05 22:53 | NUR ---
transfer of care report given to Guido VINCENT from Med surg floor.
--- NOTE | 2020-04-05 23:00 | NUR ---
pt taken to MST floor by CHASTITY Tong.
--- NOTE | 2020-04-05 23:15 | NUR ---
RECEIVED REPORT FROM ER NURSE MABEL. ON MEDSURG, PT AOX4 ON ROOM AIR, NO S/S RESPIRATORY DISTRESS. WILL MEDICATE PRN FOR R LOWER EXT PAIN. SKIN WARM DRY INTACT, BOWEL SOUNDS ACTIVE, IV SITE LAC 20G PATENT INTACT. ORIENTED PATIENT TO ROOM AND HOSPITAL. SAFETY MEASURES IN PLACE. CALL LIGHT WITHIN REACH. WILL CONTINUE TO MONITOR. DX: DISTAL TIB/FIB FX. HX: CHF, HTN, ASTHMA, GERD, S/P PACEMAKER, HYPERPARATHYROID, HYPOTHYROID VS: BP 152/109 RR 22 TEMP 98.4 HR 86 O2 SAT 95%
[2020-04-06] VITALS: BP 152/109
--- NOTE | 2020-04-06 | NUR ---
PT REQUEST TO HAVE LECHUGA CATH INSERTED . AWARE. WILL FOLLOW THROUGH WITH NEW ORDERS
--- NOTE | 2020-04-06 01:15 | NUR ---
LECHUGA CATH INSERTED, TOLERATED WELL, DRAINING YELLOW URINE. WILL CONTINUE TO MONITOR
[2020-04-06] MEDS: MORPHINE SULFATE 2 MG/ML SYR IVP PRN ×2 (02:44→06:44)
--- NOTE | 2020-04-06 02:50 | NUR ---
PRN MORPHINE GIVEN FOR C/O SEVERE PAIN TO RLE, TOLERATED WELL. WILL CONTINUE TO MONITOR
[2020-04-06 04:00] VITALS: BP 157/100
--- NOTE | 2020-04-06 07:15 | NUR ---
ENDORSED PT TO DAY RN FOR CONTINUITY OF CARE. PT IS IN STABLE CONDITION
--- NOTE | 2020-04-06 07:20 | NUR ---
ENDORSED PT TO ASSEMBLER TRIM NURSE, PT IN OR.
[2020-04-06 07:55] LABS: BASOPHILS # (AUTO) 0.1 K/uL (0.00-0.22); BASOPHILS % (AUTO) 0.8 % (0.0-2.0); EOSINOPHILS # (AUTO) 0.1 K/uL (0-0.4); EOSINOPHILS % (AUTO) 1.1 % (0.0-4.0); HEMATOCRIT 32.3 % (36-48); HEMOGLOBIN 10.5 g/dL (12.0-16.0); LYMPHOCYTES # (AUTO) 1.9 K/uL (2.5-16.5); LYMPHOCYTES % (AUTO) 23.7 % (20.5-51.1); MEAN CORPUSCULAR HEMOGLOBIN 28 pg (27-31); MEAN CORPUSCULAR HGB CONC 33 g/dL (33-37); MEAN CORPUSCULAR VOLUME 86.4 fL (80-94); MONOCYTES # (AUTO) 0.8 K/uL (0.8-1.0); MONOCYTES % (AUTO) 10.7 % (1.7-9.3); NEUTROPHILS % (AUTO) 63.7 % (42.2-75.2); PLATELET COUNT (AUTO) 269 K/uL (140-450); RED BLOOD CELL COUNT(AUTO) 3.74 MIL/uL (4.20-5.40); RED CELL DISTRIBUTION WIDTH 15.5 % (11.6-13.7)
[2020-04-06 08:00] VITALS: BP 162/105
--- NOTE | 2020-04-06 08:05 | NUR ---
REC'D REPORT FROM PAPER SUPERVISOR NURSE, PT ON RA. IV LLOUIS SL. CALL LIGHT WITHIN REACH. PT COMFORTABLE. ,STABLE , SCHEDULED FOR SURGERY THIS AFTERNOON AT 1630, PT NPO
[2020-04-06 08:13] LABS: ANION GAP 13.9 (8-16); CARBON DIOXIDE 27.9 mmol/L (21-32); CREATININE 0.8 mg/dL (0.6-1.3); POTASSIUM 3.8 mmol/L (3.5-5.1)
[2020-04-06 08:20] LABS: WHITE BLOOD COUNT (AUTO) 7.8 K/uL (4.8-10.8)
[2020-04-06] MEDS: hydrALAZINE 20 MG/ML VIAL IVP PRN ×2 (08:24→18:44)
--- NOTE | 2020-04-06 08:30 | NUR ---
PT BLOOD PRESSURE ELEVATED AT 160/102, ADMINISTERED HYDRALAZINE PER MD ORDER, PT TOLERATED PROCEDURE WELL.
--- NOTE | 2020-04-06 08:48 | NUR ---
PATIENT HAS BEEN SCREENED AND CATEGORIZED MODERATE NUTRITION RISK. PATIENT WILL BE SEEN WITHIN 3-5 DAYS OF ADMISSION. 04/08/20 04/10/[address]
--- NOTE | 2020-04-06 09:05 | NUR ---
PER , GAMAL TO GIVE PO MEDS THIS MORNING. PT NPO FOR SCHEDULED SURGERY.
[2020-04-06] MEDS: LEVOTHYROXINE 0.05 MG TAB PO SCH (09:11)
[2020-04-06] MEDS: DULoxetine 30 MG CAPDR PO SCH (09:11)
[2020-04-06] MEDS: CALCIUM CARBONATE 500 MG TAB PO SCH (09:12)
[2020-04-06] MEDS ORDERED: CRUSHER, PILL MC ONE (09:18)
[2020-04-06] MEDS: HYDROcodone/APAP 5/325 MG 1 TAB TAB PO PRN (10:08)
[2020-04-06 10:12] VITALS: BP 156/96
--- NOTE | 2020-04-06 10:12 | NUR ---
SOCIAL WORK NOTE: Patient's Orientation Unable To Assess Information Provided By NICKOLAS ANDREWS - SISTER Comments SW WAS UNABLE TO MEET PATIENT AT BEDSIDE. SW COMPLETED ASSESSMENT WITH PATIENT'S SISTER. Medical Device Assembler, Realtionship and Phone Number NICKOLAS SORTO [phone] Healthcare Power of Asset Protection Associate No Does Patient Have a POLST No Identifying Problems No Social Work Triggers Is A Social Work Consult Needed No Mandate Report Filed No Explanation Of Identifying Problems PATIENT IS A 49-YEAR-OLD FEMALE ADMITTED FOR DISTAL TIB/FIB FRACTURE. PATIENT HAS PMHX OF CHF, HYPERTENSION, ASTHMA, GERD, AND HYPERPARATHYROIDISM. Admitted From Home Pre-Admission Level Of Functioning Status Assist With ADL Level Of Functioning Comment PATIENT RECEIVES ASSISTANCE PREPARING MEALS, CLEANING, AND GROCERY SHOPPING PER SISTER. Prior Resources/Services Used In Last 12 Months [facility] Prior Resources/Service Comments SISTER REPORTED PATIENT RECEIVES [facility] BUT IS UNSURE OF HOW MANY HOURS PATIENT RECEIVES. Prior DME Walker Dialysis Comments N/A Living Situation Apartment Lives Alone Patient Had Caregiver Yes Name and Contact Number Of Designated Caregiver JESSE GALLAGHER - [phone] Home Support CG/Fam Able To Meet Need Financial Issues No Known Financial Issue Referral To The Financial Counselor Needed No Factors/Needs No D/C Needs Identified Pt/Rep Participated In Discharge Plan Yes Patient/Family Agress With Discharge Plan Yes Discharge Plan Comments TENTATIVE DISCHARGE PLAN IS FOR PATIENT TO RETURN HOME. DC Plan Status Initiated
--- NOTE | 2020-04-06 15:58 | NUR ---
PT OFF UNIT TO OR FOR ORIF. PT STABLE
[2020-04-06] MEDS ORDERED: IPRATROPIUM 0.02% 0.5 MG/2.5 ML NEBU INH ONE (16:29)
[2020-04-06] MEDS ORDERED: ALBUTEROL 0.083% 2.5 MG/3 ML NEBU INH ONE (16:29)
[2020-04-06] MEDS ORDERED: ALBUTEROL SULFATE/IPRATROPIU 3 ML SOL IH SCH (16:30)
[2020-04-06] MEDS ORDERED: METOCLOPRAMIDE 10 MG/2 ML INJ VIAL ONE (16:45)
[2020-04-06] MEDS ORDERED: ONDANSETRON 4 MG/2 ML VIAL ONE (16:45)
[2020-04-06] MEDS ORDERED: LIDOCAINE 2% 100 MG/5 ML SYR IVP ONE (16:45)
[2020-04-06] MEDS ORDERED: PROPOFOL 200 MG/20 ML VIAL IV ONE (16:45)
[2020-04-06] MEDS ORDERED: DEXAMETHASONE 4 MG/ML VIAL ONE (16:45)
[2020-04-06] MEDS ORDERED: HYDROcodone/APAP 10/325 MG 1 TAB TAB PO PRN (17:00)
[2020-04-06] MEDS ORDERED: ONDANSETRON 4 MG/2 ML VIAL IVP PRN ×2 (17:55→18:00)
[2020-04-06] MEDS ORDERED: fentaNYL citrate 0.05 MG/ML VIAL IVP PRN (17:55)
[2020-04-06] MEDS: LACTATED RINGERS 1,000 ML IV SCH (17:55)
[2020-04-06] MEDS ORDERED: diphenhydrAMINE 50 MG/ML VIAL IVP PRN ×2 (17:55→18:00)
[2020-04-06] MEDS ORDERED: MEPERIDINE 25 MG/ML SYR IVP PRN (17:55)
[2020-04-06] MEDS: CLINDAMYCIN 600 MG in DEXTROSE 5% 50 ML IV SCH ×2 (18:00→23:59)
[2020-04-06] MEDS ORDERED: NALOXONE 0.4 MG/ML VIAL IVP PRN ×2 (18:00)
[2020-04-06] MEDS ORDERED: HYDROcodone/APAP 5/325 MG 1 TAB TAB PO PRN (18:00)
--- NOTE | 2020-04-06 19:26 | NUR ---
RECEIVED REPORT FROM DONNIE PT OFF UNIT FOR SX: ORIF
[2020-04-06 20:55] VITALS: BP 134/81
--- NOTE | 2020-04-06 20:55 | NUR ---
PT BACK FROM SX, ABLE TO WIGGLE TOES, NO S/S ACUTE DISTRESS NOTED. VS: 134/81 TEMP 98.8 HR 110 RR 18, O2 SAT 100%, SAFETY MEASURES IN PLACE. CALL LIGHT WITHIN REACH. WILL CONTINUE TO MONITOR
[2020-04-06] MEDS: MONTELUKAST SODIUM 10 MG TAB PO SCH (22:55)
[2020-04-06] MEDS: FAMOTIDINE 20 MG/2 ML VIAL IV SCH (22:55)
--- NOTE | 2020-04-06 23:00 | NUR ---
ADMINISTERED SCHEDULED MEDS, TOLERATED WELL. NO S/S ACUTE DISTRESS NOTED. WILL CONTINUE TO MONITOR
--- NOTE | 2020-04-07 01:30 | NUR ---
PT ASLEEP IN BED. RESPIRATIONS EVEN UNLABORED. NO S/S ACUTE DISTRESS NOTED. WILL CONTINUE TO MONITOR
[2020-04-07] MEDS: LACTATED RINGERS 1,000 ML IV SCH ×3 (02:15→18:55)
[2020-04-07 04:00] VITALS: BP 147/78
[2020-04-07] MEDS: HYDROcodone/APAP 10/325 MG 1 TAB TAB PO PRN ×4 (04:48→20:34)
[2020-04-07] MEDS: CLINDAMYCIN 600 MG in DEXTROSE 5% 50 ML IV SCH (05:05)
[2020-04-07 06:18] LABS: BASOPHILS % (AUTO) 0.3 % (0.0-2.0); EOSINOPHILS % (AUTO) 0.1 % (0.0-4.0); HEMATOCRIT 28.1 % (36-48); HEMOGLOBIN 9.1 g/dL (12.0-16.0); LYMPHOCYTES # (AUTO) 1.3 K/uL (2.5-16.5); LYMPHOCYTES % (AUTO) 14.5 % (20.5-51.1); MEAN CORPUSCULAR HEMOGLOBIN 28 pg (27-31); MEAN CORPUSCULAR HGB CONC 32 g/dL (33-37); MEAN CORPUSCULAR VOLUME 86.5 fL (80-94); NEUTROPHILS # (AUTO) 6.3 K/uL (1.8-7.7); NEUTROPHILS % (AUTO) 73.1 % (42.2-75.2); PLATELET COUNT (AUTO) 274 K/uL (140-450); RED BLOOD CELL COUNT(AUTO) 3.25 MIL/uL (4.20-5.40); RED CELL DISTRIBUTION WIDTH 15.6 % (11.6-13.7); WHITE BLOOD COUNT (AUTO) 8.6 K/uL (4.8-10.8)
[2020-04-07 06:45] LABS: MAGNESIUM 1.7 mg/dL (1.8-2.4); PHOSPHORUS 4.4 mg/dL (2.5-4.9)
--- NOTE | 2020-04-07 07:15 | NUR ---
RECEIVED PATIENT FROM NIGHT NURSE. PATIENT IN BED SLEEPING, CHEST NOTED RISING. NO NOTED ACUTE S/S DISTRESS AT THIS TIME. RESP EVEN AND UNLABORED ON 2LNC. [place] NOTED IN PLACE. LAC 20G. DROPLET PRECAUTION OBSERVED. CALL LIGHT WITHIN REACH. WILL CONTINUE TO MONITOR
--- NOTE | 2020-04-07 07:15 | NUR ---
ENDORSED PT TO DAY RN FOR CONTINUITY OF CARE. PT IS IN STABLE CONDITION.
[2020-04-07 08:00] VITALS: BP 115/72
[2020-04-07 08:58] LABS: ANION GAP 13.6 (8-16); CARBON DIOXIDE 26.6 mmol/L (21-32); POTASSIUM 4.2 mmol/L (3.5-5.1)
[2020-04-07] MEDS: ASPIRIN 325 MG TABEC PO SCH (10:04)
[2020-04-07] MEDS: DULoxetine 30 MG CAPDR PO SCH (10:04)
[2020-04-07] MEDS: CALCIUM CARBONATE 500 MG TAB PO SCH (10:04)
[2020-04-07] MEDS: LEVOTHYROXINE 0.05 MG TAB PO SCH (10:05)
--- NOTE | 2020-04-07 10:15 | NUR ---
PATIENT SITTING UP IN BED AWAKE AND ALERT. MORNING ROUTINE MEDICATIONS GIVEN. PATIENT TOLERATED WELL. LAC 20G INTACT AND PATENT. RESP EVEN AND UNLABORED ON 2LNC, O2SAT 95%. NORCO GIVEN FOR PAIN TO RIGHT LOWER LEG. S/P ORIF OF TIBIA AND FIBULA. AFFECTED EXTREMITY WRAPPED IN J LUIS BANDAGE BY SURGEON. NO NOTED DRAINAGE OR ACTIVE BLEEDING. DRESSING DRY AND INTACT. GOOD SENSATION AND ABLE TO WIGGLE HER TOES. LECHUGA NOTED IN PLACE WITH YELLOW URINE. PLAN OF CARE DISCUSSED. PATIENT VERBALIZED UNDERSTANDING. CALL LIGHT WITHIN REACH. WILL CONTINUE TO MONITOR.
--- NOTE | 2020-04-07 12:35 | NUR ---
PATIENT IN BED SLEEPING. CHEST NOTED RISING. NO ACUTE S/S DISTRESS. CALL LIGHT WITHIN REACH. WILL CONTINUE TO MONITOR.
--- NOTE | 2020-04-07 14:35 | NUR ---
PATIENT IN BED SLEEPING, CHEST NOTED RISING. NO NOTED ACUTE S/S DISTRESS. CALL LIGHT WITHIN REACH. WILL CONTINUE TO MONITOR.
[2020-04-07] MEDS ORDERED: HYDR-5122 PO (14:44)
[2020-04-07] MEDS ORDERED: ASPI-1205 PO (14:44)
--- NOTE | 2020-04-07 15:09 | NUR ---
DISCHARGE PLANNING: CONTACTED MARCIA OF [facility] AT [phone]. PER MARCIA THEY WILL RUN THE ELIGIBILITY AND WILL LET US KNOW ONCE THEY ARE ABLE TO PROVIDE. ORDER SENT TO [phone]. WILL FOLLOW UP. Addendum: 04/07/20 at 1514 by Acacia Thomas RECEIVED AN ORDER FOR HOME HEALTH. PER NYASIA OF [facility], CHITAR GARCIAS IS DELEGATED FOR HOME HEALTH. REFERRAL SENT TO [facility]. WILL FOLLOW UP. Addendum: 04/07/20 at 1531 by Mya Zaldivar MARIO TREASURY DIRECTOR: PATIENT PREVIOUSLY HAD HOME HEALTH SERVICES WITH [facility]. CM SPOKE TO FLORENTIN AT [facility] THEY ARE ABLE TO RESUME SERVICES. PATIENT ALSO WAS DISCHARGED WITH A CAM BOOT LAST TIME Addendum: 04/07/20 at 1632 by Acacia Thomas CM CLINICALS SENT TO [facility]. PER FLORNETIN THEY CAN CONTINUE THE SERVICES AND WILL SEND A NURSE IN 24-48 HOURS TO EVALUATE THE PATIENT. CONTACTED [facility] AT [phone], ABLE TO SPEAK TO LASHAY. PER LASHAY THEY JUST NEED AUTHORIZATION FROM THE PATIENT TO BILL THEM AGAIN FOR A NEW CAM BOOT SINCE THEY PROVIDED ONE 6 MONTHS AGO. PER LASHAY SOMEONE WILL COME OUT TOMORROW TO REEVALUATE PATIENT. PATIENT MADE AWARE AND IN AGREEMENT. Addendum: 04/08/20 at 1458 by Mya Zaldivar MARIO TREASURY DIRECTOR: SCHEDULED PATIENT A PCP APPT WITH DR. PURCELL ON Mar 3:20 PM. THIS WILL BE A VIDEO APPT. PROVIDED PT WITH REMINDER Addendum: 04/08/20 at 1602 by Acacia Thomas CM LATE ENTRY FOR THIS MORNING: CONTACTED LASHAY AT [facility] [employer], HE STATED SOMEONE WILL BE CONTACTING THE PATIENT TO CONFIRM THE APPOINTMENT FOR TOMORROW. HE STATED THEY DO NOT COME OUT TO THE HOSPITAL. PATIENT MADE AWARE. SHE STATED SHE WILL HAVE HER SISTER BRING THE OLD CAM BOOT FROM HOME. Addendum: 04/09/20 at 1525 by Acacia Thomas CM RECEIVED A CALL FROM FLORENTIN [facility], ASKING IF WE HAVE OTHER CONTACT INFO FOR THE PATIENT BECAUSE THEY WERE HAVING A HARD CONTACTING THE PATIENT. INFORMED HER THAT WHATEVER IN THE FACE THAT IS ALL WE HAVE. SHE STATED SHE WILL TRY CALLING THOSE NUMBER AGAIN. CONTACTED PATIENT AT [phone] AND INFORMED HER THAT [facility] HAD BEEN TRYING TO REACH HER. SHE STATED SHE WAS NOT ABLE TO ANSWER THE CALLS BECAUSE SHE WAS IN SO MUCH PAIN. SHE STATED SHE DID NOT GET ANY PRESCRIPTION FOR PAIN MED. PER CHARGE NURSE, PHARMACY DID NOT ACCEPT THE PRESCRIPTION YESTERDAY AND NEED TO FOLLOW UP WITH DR. ANDREWS. DR. ANDREWS MADE AWARE. HE HANDED ME THE NEW PRESCRIPTION FOR THE PATIENT. CONTACTED PATIENT, NO ANSWER. LEFT MESSAGE. CONTACTED PATIENT'S SISTER NICKOLAS AT [phone] TO INFORM HER THAT THE PRESCRIPTION IS READY TO PICKED UP AT THE [facility]. PER NICKOLAS SHE WILL BE HERE AFTER 1600. [facility] MADE AWARE.
--- NOTE | 2020-04-07 16:35 | NUR ---
NORCO GIVEN FOR PAIN. PATIENT ABLE TO MAKE NEEDS KNOWN. FOLLOW COMMANDS. CALL LIGHT WITHIN REACH. WILL CONTINUE TO MONITOR.
--- NOTE | 2020-04-07 19:25 | NUR ---
RECEIVED PATIENT FROM AM SHIFT NURSE FOR CONTINUITY OF CARE. ABLE TO MAKE NEEDS KNOWN. RESPIRATIONS EVEN, UNLABORED. SKIN WARM, DRY. IV SITE TO RIGHT AC 20G PATENT/INTACT, INFUSING FLUIDS WELL. PATIENT C/O PAIN. WILL MEDICATE ORDERED. ABDOMEN SOFT, NONTENDER, NONDISTENDED. BOWEL SOUNDS ACTIVE X4 QUADRANTS. LECHUGA CATHETER PATENT WITH YELLOW URINE DRAINING TO GRAVITY. CALL LIGHT WITHIN REACH AT ALL TIMES. PLAN OF CARE DISCUSSED. SAFETY PRECAUTIONS IN PLACE.
--- NOTE | 2020-04-07 19:25 | NUR ---
ENDORSED PATIENT TO NIGHT NURSE. PATIENT IN STABLE CONDITION.
[2020-04-07 19:37] VITALS: BP 115/72
[2020-04-07 20:00] VITALS: BP 147/92
--- NOTE | 2020-04-07 20:30 | NUR ---
SPOKE TO SISTER NICKOLAS REGARDING POSSIBLE DISCHARGE TOMORROW AFTER PATIENT GET SIZED FOR BOOT AND RECEIVES CRUTCHES.
[2020-04-07] MEDS: MONTELUKAST SODIUM 10 MG TAB PO SCH (20:33)
[2020-04-07] MEDS: FAMOTIDINE 20 MG/2 ML VIAL IV SCH (20:33)
--- NOTE | 2020-04-07 21:46 | NUR ---
DUE MEDS GIVEN. PATIENT IS RESTING COMFORTABLY IN BED. NO S/S ACUTE DISTRESS. CALL LIGHT WITHIN REACH.
--- NOTE | 2020-04-07 23:11 | NUR ---
PATIENT IS ASLEEP. NO S/S ACUTE DISTRESS. CALL LIGHT WITHIN REACH.
[2020-04-08] MEDS: HYDROcodone/APAP 10/325 MG 1 TAB TAB PO PRN ×3 (00:50→09:25)
--- NOTE | 2020-04-08 01:00 | NUR ---
MADE ROUNDS. PATIENT IS ASLEEP. NO S/S ACUTE DISTRESS. CALL LIGHT WITHIN REACH.
--- NOTE | 2020-04-08 03:00 | NUR ---
PATIENT IS ASLEEP. NO S/S ACUTE DISTRESS. CALL LIGHT WITHIN REACH.
[2020-04-08] MEDS: LACTATED RINGERS 1,000 ML IV SCH (03:44)
[2020-04-08 04:00] VITALS: BP 156/90
--- NOTE | 2020-04-08 05:30 | NUR ---
PATIENT RESTING COMFORTABLY IN BED. NO S/S ACUTE DISTRESS. CALL LIGHT WITHIN REACH.
--- NOTE | 2020-04-08 07:20 | NUR ---
ENDORSED PATIENT TO AM SHIFT NURSE FOR CONTINUITY OF CARE.
--- NOTE | 2020-04-08 07:25 | NUR ---
REC'D REPORT FROM FOOD AND NUTRITION SERVICES ASSISTANT NURSE. PT RA. Mariposa TRENT/Ox4.
[2020-04-08] MEDS: DULoxetine 30 MG CAPDR PO SCH (08:08)
[2020-04-08] MEDS: CALCIUM CARBONATE 500 MG TAB PO SCH (08:09)
[2020-04-08] MEDS: ASPIRIN 325 MG TABEC PO SCH (08:09)
[2020-04-08] MEDS: LEVOTHYROXINE 0.05 MG TAB PO SCH (08:09)
--- NOTE | 2020-04-08 08:10 | NUR ---
ADMINISTERED PO MEDS PER MD ORDER, PT TOLERATED PROCEDURE WELL.
[2020-04-08 08:22] VITALS: BP 180/103
[2020-04-08] MEDS: hydrALAZINE 20 MG/ML VIAL IVP PRN (08:22)
--- NOTE | 2020-04-08 08:25 | NUR ---
PT'S BP 180/105, HYDRALIZINE ADMINISTERED PER MD ORDER.
--- NOTE | 2020-04-08 13:25 | NUR ---
PT DISCHARGED VIA WHEELCHAIR, ID BAND REMOVED, LECHUGA CATHETER REMOVED WITHOUT COMPLICATIONS, IV CANNULA REMOVED, INTACT,PT STABLE.
== END 2020-04-08 15:30 | disposition home health service (06) | DRG 493 ==
LOC: MED 10:01 → MTU 20:08 → MMU 21:43
PROVIDERS: ADMIT Hospitalist; ATTEND Hospitalist
PROC: 0QSG04Z Reposition Right Tibia with Internal Fixation Device, Open Approach (ICD-10-PCS; 2020-04-06)
PROC: 0QSJXZZ Reposition Right Fibula, External Approach (ICD-10-PCS; 2020-04-06)
PROC: 0QHG36Z Insertion of Intramedullary Internal Fixation Device into Right Tibia, Percutaneous Approach (ICD-10-PCS; principal; 2020-04-06 16:30)
DX: S82.201A Unspecified fracture of shaft of right tibia, initial encounter for closed fracture (principal); E87.0 Hyperosmolality and hypernatremia; Z68.43 Body mass index [BMI] 50.0-59.9, adult; E66.01 Morbid (severe) obesity due to excess calories; D63.8 Anemia in other chronic diseases classified elsewhere; I50.9 Heart failure, unspecified; Z20.822 Contact with and (suspected) exposure to COVID-19; I11.0 Hypertensive heart disease with heart failure; K21.9 Gastro-esophageal reflux disease without esophagitis; J45.909 Unspecified asthma, uncomplicated; E03.9 Hypothyroidism, unspecified; E21.3 Hyperparathyroidism, unspecified; S82.101A Unspecified fracture of upper end of right tibia, initial encounter for closed fracture; S82.831A Other fracture of upper and lower end of right fibula, initial encounter for closed fracture; W18.30XA Fall on same level, unspecified, initial encounter; Y93.89 Activity, other specified; Z88.0 Allergy status to penicillin; Z88.8 Allergy status to other drugs, medicaments and biological substances; Z91.040 Latex allergy status; Z95.0 Presence of cardiac pacemaker; Y92.89 Other specified places as the place of occurrence of the external cause; Y99.8 Other external cause status
CPT/HCPCS: 36415; 73590; 73700; 77003; 80048; 83735; 83880; 84100; 84484; 85025; 85610; 85730; 86886; 86900; 86901; 87081; 93005; 93970; 96374; 96376; 97110; 97112; 97161-GP; 97530; 99285; J0360; J1100; J1644; J2001; J2270; J2405; J2704; J2765; J3490; J7030; J7060; J7120; J7613; J7644

== ENCOUNTER 2020-09-06 09:33 | Emergency (ER) | payer OTHER, SELFPAY ==
[~2020-09-06] VITALS: Ht 170.2 cm; Wt 123.4 kg
[~2020-09-06 09:33] MED LIST changes: +ASPI-1205 PO; +HYDR-5122 PO
[2020-09-06 09:50] VITALS: BP 147/88
[2020-09-06 11:07] LABS: BASOPHILS # (AUTO) 0.1 K/uL (0.00-0.22); BASOPHILS % (AUTO) 0.9 % (0.0-2.0); EOSINOPHILS # (AUTO) 0.3 K/uL (0-0.4); EOSINOPHILS % (AUTO) 4.9 % (0.0-4.0); HEMOGLOBIN 9.3 g/dL (12.0-16.0); LYMPHOCYTES # (AUTO) 2.4 K/uL (2.5-16.5); LYMPHOCYTES % (AUTO) 38.4 % (20.5-51.1); MEAN CORPUSCULAR HEMOGLOBIN 24 pg (27-31); MEAN CORPUSCULAR HGB CONC 31 g/dL (33-37); MEAN CORPUSCULAR VOLUME 76.4 fL (80-94); MONOCYTES # (AUTO) 0.5 K/uL (0.8-1.0); MONOCYTES % (AUTO) 7.3 % (1.7-9.3); NEUTROPHILS % (AUTO) 48.5 % (42.2-75.2); PLATELET COUNT (AUTO) 390 K/uL (140-450); RED BLOOD CELL COUNT(AUTO) 3.93 MIL/uL (4.20-5.40); RED CELL DISTRIBUTION WIDTH 19.7 % (11.6-13.7); WHITE BLOOD COUNT (AUTO) 6.2 K/uL (4.8-10.8)
[2020-09-06 11:12] LABS: ANION GAP 14.7 (8-16); CARBON DIOXIDE 28.9 mmol/L (21-32); CREATININE 0.8 mg/dL (0.6-1.3); POTASSIUM 3.6 mmol/L (3.5-5.1)
[2020-09-06 11:19] LABS: ALBUMIN 3.4 g/dL (3.4-5.0); TOTAL BILIRUBIN 0.3 mg/dL (0.0-1.0)
[2020-09-06] MEDS ORDERED: FURO-572 PO (11:32)
[2020-09-06] MEDS ORDERED: LISI5TAB18 PO (11:32)
[2020-09-06 11:59] VITALS: BP 147/88
== END 2020-09-06 12:00 | disposition home or self-care (01) ==
LOC: MED 09:33
DX: R60.0 Localized edema (principal); I11.9 Hypertensive heart disease without heart failure; J45.909 Unspecified asthma, uncomplicated; K21.9 Gastro-esophageal reflux disease without esophagitis; Z88.0 Allergy status to penicillin; Z88.5 Allergy status to narcotic agent; Z91.040 Latex allergy status; Z79.899 Other long term (current) drug therapy
CPT/HCPCS: 36415; 71045; 80053; 83880; 84484; 85025; 93971; 99285

== ENCOUNTER 2021-01-30 14:04 | Emergency (ER) | payer OTHER, SELFPAY ==
[~2021-01-30] VITALS: Ht 170.2 cm; Wt 133.4 kg
[~2021-01-30 14:04] MED LIST changes: +FURO-572 PO; +LISI5TAB18 PO
[2021-01-30 14:22] VITALS: BP 129/83
--- NOTE | 2021-01-30 14:43 | NUR ---
50 y/o female from home c/o 10/03 sternal chest pressure, unprovoked. Pt states she was at rest when pain occured. Took [place] for pain with no relief. Denies nausea/vomiting. RR even and unlabored. Pt does not appear in distress. Awake and alert, bed locked and in lowest position. VSS. medhx: CHF, HTN, pacemaker, HIV, asthma
[2021-01-30] MEDS ORDERED: ASPIRIN 81 MG TAB.CHEW PO ONE (14:50)
--- NOTE | 2021-01-30 14:52 | NUR ---
DR SHANE AT BEDSIDE.
--- NOTE | 2021-01-30 14:56 | NUR ---
LAB AT BEDSIDE.
--- NOTE | 2021-01-30 14:58 | NUR ---
XRAY AT BEDSIDE.
[2021-01-30 15:11] LABS: BASOPHILS % (AUTO) 0.7 % (0.0-2.0); EOSINOPHILS # (AUTO) 0.2 K/uL (0-0.4); EOSINOPHILS % (AUTO) 2.5 % (0.0-4.0); HEMATOCRIT 28.3 % (36-48); LYMPHOCYTES # (AUTO) 2.4 K/uL (2.5-16.5); LYMPHOCYTES % (AUTO) 35.9 % (20.5-51.1); MEAN CORPUSCULAR HEMOGLOBIN 25 pg (27-31); MEAN CORPUSCULAR HGB CONC 32 g/dL (33-37); MEAN CORPUSCULAR VOLUME 78.2 fL (80-94); MONOCYTES # (AUTO) 0.7 K/uL (0.8-1.0); NEUTROPHILS # (AUTO) 3.3 K/uL (1.8-7.7); NEUTROPHILS % (AUTO) 50.9 % (42.2-75.2); PLATELET COUNT (AUTO) 331 K/uL (140-450); RED BLOOD CELL COUNT(AUTO) 3.62 MIL/uL (4.20-5.40); WHITE BLOOD COUNT (AUTO) 6.6 K/uL (4.8-10.8)
[2021-01-30 15:23] LABS: ALBUMIN 3.3 g/dL (3.4-5.0); ANION GAP 9.6 (8-16); CARBON DIOXIDE 29.9 mmol/L (21-32); CREATININE 0.8 mg/dL (0.6-1.3); POTASSIUM 3.5 mmol/L (3.5-5.1); TOTAL BILIRUBIN 0.2 mg/dL (0.0-1.0)
--- NOTE | 2021-01-30 16:47 | NUR ---
Pt awake and alert, remains on bedside monitor. VSS. Pt does not appear in distress.
[2021-01-30] MEDS ORDERED: PANTOPRAZOLE 40 MG TABEC PO ONE (17:55)
[2021-01-30] MEDS ORDERED: ALUMINUM HYD/MAG/SIMETHICONE 30 ML UDC PO ONE (17:55)
--- NOTE | 2021-01-30 18:00 | NUR ---
Pt states abd pain at this time. Dr Ramirez made aware.
--- NOTE | 2021-01-30 18:51 | NUR ---
Patient discharged with v/s stable. Written and verbal after care instructions given and explained. Patient verbalized understanding. Ambulatory with steady gait. All questions addressed prior to discharge. Advised to follow up with PMD.
[2021-01-30 18:52] VITALS: BP 139/82
--- NOTE | 2021-01-30 18:54 | NUR ---
The patient's care was reviewed and supervised by Billie Nava RN.
== END 2021-01-30 18:51 | disposition home or self-care (01) ==
LOC: MED 14:04
DX: R07.89 Other chest pain (principal); I11.0 Hypertensive heart disease with heart failure; I50.9 Heart failure, unspecified; K21.9 Gastro-esophageal reflux disease without esophagitis; E07.9 Disorder of thyroid, unspecified
CPT/HCPCS: 36415; 71045; 80053; 84484; 85025; 93005; 99285

== ENCOUNTER 2022-04-21 15:53 | Emergency (ER) | payer OTHER ==
[~2022-04-21] VITALS: Ht 170.2 cm; Wt 141.6 kg
[2022-04-21 15:55] VITALS: BP 179/106
--- NOTE | 2022-04-21 16:20 | NUR ---
PT AMB TO BED 6.
--- NOTE | 2022-04-21 16:41 | NUR ---
Lab at bedside.
--- NOTE | 2022-04-21 16:44 | NUR ---
X-Ray at bedside.
[2022-04-21 16:50] LABS: BASOPHILS # (AUTO) 0.1 K/uL (0.00-0.22); BASOPHILS % (AUTO) 0.6 % (0.0-2.0); EOSINOPHILS # (AUTO) 0.3 K/uL (0-0.4); EOSINOPHILS % (AUTO) 3.3 % (0.0-4.0); HEMOGLOBIN 10.3 g/dL (12.0-16.0); LYMPHOCYTES # (AUTO) 3.3 K/uL (2.5-16.5); LYMPHOCYTES % (AUTO) 38.9 % (20.5-51.1); MEAN CORPUSCULAR HEMOGLOBIN 28 pg (27-31); MEAN CORPUSCULAR HGB CONC 32 g/dL (33-37); MEAN CORPUSCULAR VOLUME 85.1 fL (80-94); MONOCYTES # (AUTO) 0.8 K/uL (0.8-1.0); MONOCYTES % (AUTO) 9.2 % (1.7-9.3); PLATELET COUNT (AUTO) 295 K/uL (140-450); RED BLOOD CELL COUNT(AUTO) 3.76 MIL/uL (4.20-5.40); WHITE BLOOD COUNT (AUTO) 8.4 K/uL (4.8-10.8)
--- NOTE | 2022-04-21 17:00 | NUR ---
61 y/o female bib self with c/o intermittent right sided chest pain x 1.5 weeks. Patient has been medicating with Tylenol with minimal relief. Patient states pain is 10/10 when pain comes on. Patient has a cough. Patient was evaluated by PCP. Denies any trauma, injury or heavy lifting. Medical History: HIV (Undetectable 2008), HTN, Obstructive Sleep Apnea, Arthritis, Gastritis, Osteoporosis, Thyroid, CHF ALLERGY: PENICILLIN, DICYCLOMINE, LATEX, PLAQUENIL, RITUXAN
[2022-04-21 17:11] LABS: ALBUMIN 3.9 g/dL (3.4-5.0); ANION GAP 12.5 (8-16); CARBON DIOXIDE 28.6 mmol/L (21-32); CREATININE 0.9 mg/dL (0.6-1.3); POTASSIUM 4.1 mmol/L (3.5-5.1); TOTAL BILIRUBIN 0.2 mg/dL (0.0-1.0)
--- NOTE | 2022-04-21 17:42 | NUR ---
Dr. Duran evaluating patient at bedside.
[2022-04-21] MEDS ORDERED: [UNRECOGNIZED DRUG - CODE] PO (17:55)
[2022-04-21] MEDS ORDERED: CETI10TA81 PO (17:55)
[2022-04-21 18:43] VITALS: BP 131/76
--- NOTE | 2022-04-21 18:43 | NUR ---
Patient discharged with v/s stable. Written and verbal after care instructions given. Patient alert, oriented and verbalized understanding of instructions. Ambulatory with steady gait. All questions addressed prior to discharge. ID band removed. Patient advised to follow up with PMD. Rx of Zyrtec and Sorbutuss Liquid given. Opportunity to ask questions provided and answered.
--- NOTE | 2022-04-21 18:44 | NUR ---
The patient's care was reviewed and supervised by Gardenia Whitaker RN.
== END 2022-04-21 18:43 | disposition home or self-care (01) ==
LOC: MED 15:53
DX: J30.2 Other seasonal allergic rhinitis (principal); R09.81 Nasal congestion; J45.909 Unspecified asthma, uncomplicated; K21.9 Gastro-esophageal reflux disease without esophagitis; I11.0 Hypertensive heart disease with heart failure; I50.9 Heart failure, unspecified; E07.9 Disorder of thyroid, unspecified; Z95.0 Presence of cardiac pacemaker; Z88.0 Allergy status to penicillin; Z88.8 Allergy status to other drugs, medicaments and biological substances; Z88.1 Allergy status to other antibiotic agents; Z91.040 Latex allergy status; Z79.899 Other long term (current) drug therapy; Z79.82 Long term (current) use of aspirin
CPT/HCPCS: 36415; 71045; 80053; 81025; 83880; 84484; 85025; 93005; 99285; Q0092

== ENCOUNTER 2022-07-15 16:56 | Emergency (ER) | payer OTHER ==
[~2022-07-15] VITALS: Ht 170.2 cm; Wt 144.7 kg
[~2022-07-15 16:56] MED LIST changes: +CETI10TA81 PO; +MONT-72 PO; -MONT10TA35 PO; +[UNRECOGNIZED DRUG - CODE] PO
[2022-07-15 17:04] VITALS: BP 123/75
[2022-07-15 19:17] LABS: BASOPHILS % (AUTO) 0.6 % (0.0-2.0); EOSINOPHILS # (AUTO) 0.1 K/uL (0-0.4); EOSINOPHILS % (AUTO) 1.5 % (0.0-4.0); HEMATOCRIT 32.7 % (36-48); HEMOGLOBIN 10.6 g/dL (12.0-16.0); LYMPHOCYTES % (AUTO) 42.9 % (20.5-51.1); MEAN CORPUSCULAR HEMOGLOBIN 27 pg (27-31); MEAN CORPUSCULAR HGB CONC 32 g/dL (33-37); MEAN CORPUSCULAR VOLUME 84.4 fL (80-94); MONOCYTES # (AUTO) 0.7 K/uL (0.8-1.0); MONOCYTES % (AUTO) 9.3 % (1.7-9.3); NEUTROPHILS # (AUTO) 3.2 K/uL (1.8-7.7); NEUTROPHILS % (AUTO) 45.7 % (42.2-75.2); PLATELET COUNT (AUTO) 312 K/uL (140-450); RED BLOOD CELL COUNT(AUTO) 3.88 MIL/uL (4.20-5.40); RED CELL DISTRIBUTION WIDTH 16.3 % (11.6-13.7); WHITE BLOOD COUNT (AUTO) 7.1 K/uL (4.8-10.8)
[2022-07-15] MEDS ORDERED: KETOROLAC 30 MG/ML VIAL IM ONE (19:30)
[2022-07-15 19:39] LABS: ALBUMIN 3.5 g/dL (3.4-5.0); ANION GAP 9.2 (8-16); CARBON DIOXIDE 30.9 mmol/L (21-32); CREATININE 0.9 mg/dL (0.6-1.3); POTASSIUM 4.1 mmol/L (3.5-5.1); TOTAL BILIRUBIN 0.2 mg/dL (0.0-1.0)
[2022-07-15 19:56] LABS: URIC ACID 5.4 mg/dL (2.6-7.2)
[2022-07-15] MEDS ORDERED: PRED20TA5 PO (20:50)
[2022-07-15 20:55] VITALS: BP 123/75
--- NOTE | 2022-07-15 20:55 | NUR ---
D/C BY . RX PRESCRIBED DELTASONE.
== END 2022-07-15 20:55 | disposition home or self-care (01) ==
LOC: MED 16:56
DX: M13.871 Other specified arthritis, right ankle and foot (principal); I10 Essential (primary) hypertension; E11.9 Type 2 diabetes mellitus without complications; K21.9 Gastro-esophageal reflux disease without esophagitis; I25.10 Atherosclerotic heart disease of native coronary artery without angina pectoris; J45.909 Unspecified asthma, uncomplicated; Z88.0 Allergy status to penicillin; Z88.8 Allergy status to other drugs, medicaments and biological substances; Z91.040 Latex allergy status; Z79.4 Long term (current) use of insulin; Z79.899 Other long term (current) drug therapy
CPT/HCPCS: 36415; 73630; 80053; 84550; 85025; 96372; 99284; J1885

== ENCOUNTER 2023-11-26 15:20 | Emergency (ER) | payer OTHER ==
[~2023-11-26] VITALS: Ht 170.2 cm; Wt 143.8 kg
[~2023-11-26 15:20] MED LIST changes: -LEFL20TA18 PO; +LEFL20TA22 PO; +PRED20TA5 PO
[2023-11-26 15:34] VITALS: BP 128/88; PULSE 87; RESP 18; TEMP 98.1; O2SAT 98
--- NOTE | 2023-11-26 16:00 | NUR ---
pt has been medicated per providers orders.
--- NOTE | 2023-11-26 16:00 | NUR ---
53 y/o with co swelling since 12/13 after having an angio done. also has a metal anastacia. pmh: htn, pacemaker, michelle, asthma, hiv +, gerd
[2023-11-26] MEDS: ACETAMINOPHEN EXTRA STRENGTH 500 MG TAB PO ONE (16:10)
[2023-11-26] MEDS ORDERED: ACET-8905 PO (18:03)
[2023-11-26 18:44] VITALS: BP 128/88; PULSE 87; RESP 18; TEMP 98.1; O2SAT 98
--- NOTE | 2023-11-26 18:47 | NUR ---
Chart checked and completed. The patient's care was reviewed and supervised by RAMYA VALDIVIA RN.
== END 2023-11-26 18:44 | disposition home or self-care (01) ==
LOC: MED 15:20
DX: M25.571 Pain in right ankle and joints of right foot (principal); R22.41 Localized swelling, mass and lump, right lower limb; J45.909 Unspecified asthma, uncomplicated; I11.0 Hypertensive heart disease with heart failure; I50.9 Heart failure, unspecified; K21.9 Gastro-esophageal reflux disease without esophagitis; E11.9 Type 2 diabetes mellitus without complications; Z95.0 Presence of cardiac pacemaker; Z79.899 Other long term (current) drug therapy; Z88.0 Allergy status to penicillin; Z91.040 Latex allergy status; Z88.8 Allergy status to other drugs, medicaments and biological substances
CPT/HCPCS: 73610; 93971; 99284; Q0092